=== PATIENT | female | born 1940 | race Caucasian/White ===

== ENCOUNTER 2016-04-30 17:44 | Emergency (ER) | payer MEDICARE, OTHER ==
--- NOTE | ~2016-04-30 | ER ---
PATIENT'S NAME: AGUSTIN HU [facility] AGE: 75 Y [address] ROOM: [place] [address] LOCATION: ED ADMIT DATE: 04/30/2016 ER/Outpatient Report DISCHARGE DATE: 04/30/2016 FAMILY PHYSICIAN: Ewelina Goldstein MD ATTENDING PHYSICIAN: Mariel Lopez Admission date and time documented on the medical record. I saw the patient at 1805 hours when I came on shift. CHIEF COMPLAINT: Wheezing, short of breath. HISTORY OF PRESENT ILLNESS: The patient is a 75-year-old female, who started to have respiratory illness this past Saturday. Seems to get developed wheezing yesterday and today. Temperature got up to 99 at the highest. No rigors. No sweats or chills. Feels short of breath. Her O2 saturation on room air was 92%. She has had audible expiratory wheeze. Does not seem to be labored with her breathing at this time. No fall or trauma. Denies lightheaded, dizziness, syncope, or near syncope. No headache, eyes, ears, nose, throat, neck, or spine pain. No chest pain. No abdominal pain, nausea, vomiting, or diarrhea. No urinary frequency, urgency, or dysuria. Does have some bruising of her extremities. Dog bit her last night, so she has some skin tears to her lower legs. The patient has a history of COPD. 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 She has hypothyroidism but no diabetes. No history of psych issues or other neuro changes. HOME MEDICATIONS: See attached medication list. ALLERGIES: GADOLINIUM DYE. SOCIAL HISTORY: Nonsmoker, occasion intake of alcohol. 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 PATIENT'S NAME: AGUSTIN HU [facility] AGE: 75 Y [address] ROOM: [place] [id number] LOCATION: [facility] ADMIT DATE: 04/30/2016 ER/Outpatient Report DISCHARGE DATE: 04/30/2016 FAMILY PHYSICIAN: Ewelina Goldstein MD ATTENDING PHYSICIAN: Mariel Lopez OPERATIONS: Appendectomy, cholecystectomy, colonoscopy, esophagogastroduodenoscopy, hysterectomy, open reduction and internal fixation of femur fracture, incisional herniorrhaphy, right knee surgery, lumbar laminectomy, right total shoulder arthroplasty, hemiarthroplasty of the hip. REVIEW OF SYSTEMS: All systems reviewed by me are negative with the exception of those discussed in the history of the present illness. PHYSICAL EXAMINATION: VITAL SIGNS: Temperature 97.6, pulse 85, respirations 26, blood pressure 208/109, O2 saturation on room air is 92%. HEAD: Normocephalic. EYES: Extraocular muscles intact. PERRL. EARS: Clear TMs bilaterally. NOSE: Clear. THROAT: Clear. Mucous membranes moist. Teeth, jaw intact. NECK: No nuchal rigidity. No thyromegaly or cervical adenopathy. No tenderness. SPINE: Negative. LUNGS: Inspiratory efforts in all lung garza. Clear expiratory wheezing diffusely. No rales. Few rhonchi. HEART: Regular. Pulses are palpable. The patient is mildly tachypneic. No chest wall or ribcage pain to palpation. ABDOMEN: Soft, moderately obese. Nontender. No organomegaly or abnormal mass palpable. No distention. No CVA tenderness. EXTREMITIES: She has some skin tears on her lower extremity from a dog. No active bleeding. Minimal edema. No cyanosis. No deformity. NEUROVASCULAR: Intact. LABORATORY DATA AND X-RAYS: Procalcitonin was 0.05. Lactate was 0.7. Arterial blood gases on room air showed a pH of 7.44, pCO2 of 43, pO2 of 58 with an O2 saturation of 91%. D- dimer was 2.44. We did go ahead with a CT scan of the chest with PE protocol, which showed no evidence of pulmonary embolism. There was scarring and COPD changes. She had increased metastatic disease of her liver. CT scan was read by Radiology, see dictated transcribed report. Influenza A was positive. Influenza B was negative. CPK was normal at 95. Fengq-ew-jhor cardiac enzymes were normal. CMS was normal except for slightly elevated sodium 146, elevated chloride of 111, elevated alkaline phosphatase 193, elevated AST of 45, white count was 4600, 67 segs, 13 lymphs, 17 monos, 1 eosinophil, hemoglobin was 14.6, hematocrit 47.0, platelet count was 166,000. Sedimentation rate was 32. PTT was 42, pro-time was 9.6, and INR 0.9. PATIENT'S NAME: AGUSTIN HU [facility] AGE: 75 Y [address] ROOM: [place] [address] LOCATION: ED ADMIT DATE: 04/30/2016 ER/Outpatient Report DISCHARGE DATE: 04/30/2016 FAMILY PHYSICIAN: Ewelina Goldstein MD ATTENDING PHYSICIAN: Mariel Lopez EMERGENCY DEPARTMENT COURSE: DuoNeb nebulizer treatment was given in the emergency department. Decadron 10 mg given IM in the emergency department. IMPRESSION: 1. Influenza A with expiratory wheezing and rhonchi. Low-grade temperature of 99. Some increasing shortness of breath. Some increasing hypoxia. 2. Neuroendocrine tumor with metastatic disease to the liver. 3. Hypertension. 4. Dyslipidemia. 5. Hypothyroidism. 6. Carcinoid tumor. 7. Left adrenal mass. 8. Hypercortisolism. 9. History of chronic obstructive pulmonary disease. 10. Irritable bowel syndrome. 11. Osteoporosis with degenerative osteoarthritis. 12. Remote tobacco abuse, stopped smoking 2 to 3 years ago. 13. Anxiety and depression. 14. Chronic kidney disease. 15. Exogenous obesity. 16. Gastroesophageal reflux. PLAN: The patient was dismissed home. Observation. Activity as tolerated. Increase her albuterol nebulizer to every 4-6 hours. Tamiflu 75 mg b.i.d. for 5 days. Continue present medications and care. Good fluids. Good hydration. Good rest. Diet as tolerated. Follow up with personal physician in 3 to 4 days or sooner if needed. Come to the emergency room if problems arise sooner. Discussion ensued with the patient in regard to my findings and recommendations, she understands. MD TAE REYES/modl /[id number] d: 05/01/160 t: 05/01/16 1812, OUTPATIENT REPORT
[~2016-04-30 17:44] MED LIST: ACIDOPHILUS1 EACH PO; ALDACTONE25 MG PO; ALEVE220 MG PO; ANTIVERT12.5 MG; ASPIRIN EC81 MG PO; BUMEX1 MG PO; CARDIZEM CD)(T180 MG PO; COLACE100 MG PO; COMPAZINE5 MG; DEXILANT60 MG PO; DILTIAZEM 24HR180 MG PO; ESTRADIOL1 EAC2 TOP; ESTRADIOL2 MG; FIBERCON1 TAB PO; IMODIUM2 MG PO; K-TAB ER20 MEQ PO; LASIX20 MG PO; LEXAPRO20 MG PO; LOTENSIN HCT 21 EACH PO; LOTENSIN20 MG PO; LOVENOX40 MG/0.4 SUB-Q; MULTIVITAMINS1 EAC1 PO; NORVASC2.5 MG PO; PEPTO BISMOL LIQ1 ML PO; PERCOCET 5-3251 EACH PO; PRAVACHOL40 MG PO; PRAVASTATIN SOD10 MG; PRILOSEC20 M1 PO; PROVENTIL OR V6.7 GM INH; SYMBICORT 16010.2 GM INH; THERAGRAN-M1 TAB PO; VITAMIN B-122500 MCG PO; VITAMIN D1000 UNIT PO; VITAMIN D34000 UNIT PO; ZADITOR 0.025% O5 ML OPHTH
[2016-04-30 18:41] LABS: BICARBONATE 29.2 mmol/L (18.0-23.0); LACTATE 0.7 mEq/L (0.50-1.60); PCO2 43 mmHg (35-45); PO2 58 mmHg (80-90)
[2016-04-30 18:42] LABS: BASOPHIL % 0.4 %; EOSINOPHIL % 0.7 %; HEMOGLOBIN 14.6 g/dL (10.0-15.0); IMMATURE GRANULOCYTE # 0.1 K/uL (0.0-0.3); LYMPHOCYTE # 0.6 K/uL (0.8-4.0); LYMPHOCYTE % 13.3 %; MCH 29.8 pg (27.0-34.0); MCHC 31.1 gm/dL (32.0-36.5); MCV 95.9 fl (83.0-98.0); MONOCYTE # 0.8 K/uL (0.0-1.0); MPV 10.3 fl (9.4-12.4); NEUTROPHIL # (ANC) 3.1 K/uL (1.8-7.8); NEUTROPHIL % 66.6 %; NRBC % 0 /100WBC (0-0.00); PLATELET COUNT 166 K/uL (150-450); RDW-CV 13.2 % (11.9-14.6); WBC 4.6 K/uL (4.0-11.0)
[2016-04-30 18:57] LABS: INR - (THERAPEUTIC) 0.9 (0.9-1.1); PROTIME 9.6 SECONDS (9.6-11.1); PTT 42 SECONDS (25-32)
[2016-04-30 19:04] LABS: ALBUMIN 2.8 gm/dL (3.5-5.0); ALK PHOS 193 IU/L (33-138); ALT 55 IU/L (12-78); AST 45 IU/L (10-40); BLOOD UREA NITROGEN 17 mg/dL (6-24); CALCIUM 8.8 mg/dL (8.5-10.5); CHLORIDE 111 mMol/L (96-110); CO2 27 mMol/L (22-32); CPK 95 IU/L (21-215); CREATININE 0.6 mg/dL (0.5-1.1); ESTIMATED GFR (MDRD EQUATION) > 60; POTASSIUM 4.3 mMol/L (3.7-5.1); TOTAL BILIRUBIN 0.3 mg/dL (0.0-1.5); TOTAL PROTEIN 6.6 g/dL (6.0-8.4)
[2016-04-30 19:05] LABS: ANION GAP 12.3 (10.0-19.0); SODIUM 146 mMol/L (135-145)
[2016-07-27] MEDS ORDERED: AFINITOR5 MG (13:47)
[2016-07-27] MEDS ORDERED: DEXAMETHASON0.5 MG (13:48)
[2016-07-27] MEDS ORDERED: OCTREOTIDE (13:48)
[2016-07-27] MEDS ORDERED: L-CARNITINE250 MG (15:40)
[2016-07-27] MEDS ORDERED: ASCORBIC ACID500 MG (15:40)
== END 2016-04-30 20:49 | disposition disaster alternative care site (69) ==
LOC: GMED 17:44
PROVIDERS: Family Medicine
DX: J10.1 Influenza due to other identified influenza virus with other respiratory manifestations (principal); C7A.00 Malignant carcinoid tumor of unspecified site; C7B.02 Secondary carcinoid tumors of liver; E03.9 Hypothyroidism, unspecified; J44.9 Chronic obstructive pulmonary disease, unspecified; E78.5 Hyperlipidemia, unspecified; K21.9 Gastro-esophageal reflux disease without esophagitis; I12.9 Hypertensive chronic kidney disease with stage 1 through stage 4 chronic kidney disease, or unspecified chronic kidney disease; N18.9 Chronic kidney disease, unspecified; Z90.49 Acquired absence of other specified parts of digestive tract; Z90.710 Acquired absence of both cervix and uterus; F41.9 Anxiety disorder, unspecified; F32.9 Major depressive disorder, single episode, unspecified
CPT/HCPCS: J1100; J1642; Q9967

== ENCOUNTER → 2016-06-26 | Outpatient (CLI) | payer MEDICARE, OTHER ==
[~2016-06-26] MED LIST changes: +AFINITOR5 MG; +ASCORBIC ACID500 MG; +CARDURA2 MG PO; +CORTEF10 M1 PO; +CORTEF20 MG PO; +DEXAMETHASON0.5 MG; +GLUCOPHAGE500 MG PO; +K-TAB 10MEQ10 MEQ PO; +L-CARNITINE250 MG; +OCTREOTIDE; +OSCAL500 MG PO; +PROBIOTIC250 MG PO; +RECLAST5 MG/100 M IV; +SOLU-MEDRO40 MG/1 ML IM; +[UNRECOGNIZED DRUG - OTHER]
== END | disposition disaster alternative care site (69) ==
LOC: GRAD 07:05
DX: C7A.8 Other malignant neuroendocrine tumors (principal); C78.7 Secondary malignant neoplasm of liver and intrahepatic bile duct; C7A.00 Malignant carcinoid tumor of unspecified site; I70.1 Atherosclerosis of renal artery; Q89.8 Other specified congenital malformations; K57.30 Diverticulosis of large intestine without perforation or abscess without bleeding; D71 Functional disorders of polymorphonuclear neutrophils; R91.1 Solitary pulmonary nodule; Z92.21 Personal history of antineoplastic chemotherapy

== ENCOUNTER 2016-07-21 11:41 | Emergency (ER) | payer MEDICARE, OTHER ==
--- NOTE | ~2016-07-21 | ER ---
PATIENT'S NAME: AGUSTIN HU [facility] AGE: 76 Y [address] ROOM: [place] [address] LOCATION: [facility] ADMIT DATE: 07/21/2016 ER/Outpatient Report DISCHARGE DATE: 07/21/2016 FAMILY PHYSICIAN: Physician, Unknown ATTENDING PHYSICIAN: Natalio Chan CHIEF COMPLAINT: Fall with chest wall pain. HISTORY OF PRESENT ILLNESS: Earlier today, the patient fell in her home because she was "top heavy" and lost her balance. She denies any unusual sensations at that time. She denies loss of consciousness. She did have multiple areas of contusion and skin tear to the head, hands, and right knee. These wounds have been addressed previously by daughter, who is reported to be a nurse. The patient is relatively unhealthy with what appears to be metastatic cancer to her liver with unknown primary. No other acute findings. She denies any particular pain, but states it is little uncomfortable to breathe. PAST MEDICAL HISTORY: Documented on the record and reviewed by me. SOCIAL HISTORY: Documented on the record and reviewed by me. MEDICATIONS: Documented on the record and reviewed by me. ALLERGIES: DOCUMENTED ON THE RECORD AND REVIEWED BY ME. REVIEW OF SYSTEMS: All systems were reviewed and negative except as noted in the HPI. PHYSICAL EXAMINATION: VITAL SIGNS: Blood pressure 195/103, pulse 73, respiratory rate 20, temperature 98.2, and SpO2 is 93% on room air. DISCHARGE VITAL SIGNS: Blood pressure 161/92, pulse 70, respiratory rate 16, and pain is 2/10 with SpO2 of 94% on room air. GENERAL: An age-appropriate female, recumbent on the exam table, appearing worse for wear, but in no outward signs of distress, but mild pain with deep inspiration. NEUROLOGIC: The patient is awake and alert. Her GCS appears to be 15. No PATIENT'S NAME: AGUSTIN HU [facility] AGE: 76 Y [address] ROOM: [place], [place] [address] LOCATION: [facility] ADMIT DATE: 07/21/2016 ER/Outpatient Report DISCHARGE DATE: 07/21/2016 FAMILY PHYSICIAN: Physician, Unknown ATTENDING PHYSICIAN: Natalio Chan focal deficits. No asymmetry appreciated on exam. The patient is diffusely weak however, no asymmetry. HEENT: The patient is normocephalic. There are multiple areas of contusions and skin tears and bruising to the forehead and right cheek area. No crepitus. No deformities. Eyes: PERRL. Extraocular movements are intact. NECK: Supple. Trachea is midline. Oropharynx is clear. CHEST: Chest wall is nontender to palpation except for below the breasts at the costochondral margins. HEART: Regular rate and rhythm with no appreciable murmur. LUNGS: Grossly clear to auscultation bilateral. No rhonchi, wheezes, or rales. ABDOMEN: Soft, nontender, and nondistended but obese. BACK: Normal to inspection and palpation. No new abnormalities. EXTREMITIES: Notable for no deformities or appreciable edema. The left knee has a large skin tear with significant skin loss, but is bandaged. SKIN: Intact except for multiple areas of skin tears on the forehead, right cheek, bilateral hands, and right knee. LABORATORY DATA AND X-RAYS: CT of the brain is unremarkable. CT of the chest is without appreciable acute abnormality such as rib fractures. CBC without appreciable abnormality. INR is appropriate. CMS with multiple mild abnormalities including sodium of 146, chloride of 114, glucose of 126, creatinine is 0.5, GFR is greater than 60, and alkaline phosphatase is elevated at 163. IMPRESSION: Falls with multiple contusions and difficulty breathing. EMERGENCY DEPARTMENT COURSE: The patient was seen and evaluated. She was given some fentanyl for pain. Labs were obtained as was the imaging. I recommended EKG, which the patient declined. After the patient was re-evaluated, she was adamant about going home. I had her try to partake with incentive spirometry. She was able to consistently get to 1 L per RT, but could not meet her goal. This is likely due to pain. I explained my concern to the patient that with her inability to fully deep breathe, she would be at increased risk of pneumonia and the pain medication that she may need would likely put her at increased risk of falling. She remained adamant that she would not come in to the hospital. In order to try to prevent her from worsening, I am recommending she take her usual home medications and try to get her incentive spirometer 3 times in the ER. In the event that she is unable to control her pain adequately, I did give her a small prescription for some hydrocodone along with some Zofran. I explained that this would put her at risk of falling and making her worse PATIENT'S NAME: AGUSTIN HU [facility] AGE: 76 Y [address] ROOM: [place], [place] [address] LOCATION: [facility] ADMIT DATE: 07/21/2016 ER/Outpatient Report DISCHARGE DATE: 07/21/2016 FAMILY PHYSICIAN: Physician, Unknown ATTENDING PHYSICIAN: Natalio Chan based on her age and overall health status and the fact that it is a narcotic. She stated that she understood the risks and I believe she comprehends them. She is to use her incentive spirometer and follow up with her primary care physician earlier this week. I believe that she is at significant risk of pneumonia and I am recommending close followup. She is to return immediately if worse. MD KUMAR BAR/afsaneh /[id number] d: 07/22/16 1144 t: 07/24/16 1123, OUTPATIENT REPORT
[~2016-07-21 11:41] MED LIST changes: -AFINITOR5 MG; -ASCORBIC ACID500 MG; -CARDURA2 MG PO; -CORTEF10 M1 PO; -CORTEF20 MG PO; -DEXAMETHASON0.5 MG; -GLUCOPHAGE500 MG PO; -K-TAB 10MEQ10 MEQ PO; -L-CARNITINE250 MG; -OCTREOTIDE; -OSCAL500 MG PO; -PROBIOTIC250 MG PO; -RECLAST5 MG/100 M IV; -SOLU-MEDRO40 MG/1 ML IM; -[UNRECOGNIZED DRUG - OTHER]
[2016-07-21 12:43] LABS: HEMOGLOBIN 11.3 g/dL (10.0-15.0); MCH 28.9 pg (27.0-34.0); MCHC 31.3 gm/dL (32.0-36.5); MCV 92.3 fl (83.0-98.0); MPV 10.5 fl (9.4-12.4); PLATELET COUNT 162 K/uL (150-450); RBC 3.91 M/uL (3.50-5.50); RDW-CV 14.6 % (11.9-14.6); WBC 6.9 K/uL (4.0-11.0)
[2016-07-21 12:44] LABS: HEMATOCRIT 36.1 % (33.0-46.0)
[2016-07-21 12:59] LABS: INR - (THERAPEUTIC) 0.99 (0.92-1.07); PROTIME 10.4 SECONDS (9.8-11.4)
[2016-07-21 13:05] LABS: ALBUMIN 2.9 gm/dL (3.5-5.0); ALK PHOS 163 IU/L (33-138); ALT 36 IU/L (12-78); AST 26 IU/L (10-40); BLOOD UREA NITROGEN 24 mg/dL (6-24); CALCIUM 7.7 mg/dL (8.5-10.5); CHLORIDE 114 mMol/L (96-110); CO2 23 mMol/L (22-32); CREATININE 0.5 mg/dL (0.5-1.1); ESTIMATED GFR (MDRD EQUATION) > 60; POTASSIUM 3.7 mMol/L (3.7-5.1); TOTAL PROTEIN 5.4 g/dL (6.0-8.4)
[2016-07-21 13:12] LABS: ANION GAP 12.7 (10.0-19.0); SODIUM 146 mMol/L (135-145); TOTAL BILIRUBIN 0.4 mg/dL (0.0-1.5)
[2016-07-21 13:15] LABS: ABSOLUTE NEUTROPHIL CT (ANC) 6.1 K/uL (1.8-7.8); BANDED NEUTROPHIL # 0.3 K/uL (0.0-0.1); BANDED NEUTROPHILS % 5 %; LYMPHOCYTE # 0.3 K/uL (0.8-4.0); LYMPHOCYTE % 5 %; MONOCYTE # 0.5 K/uL (0.0-1.0); SEGMENTED NEUTROPHIL # 5.7 K/uL (1.8-7.8); SEGMENTED NEUTROPHIL % 83 %
[2016-07-21 13:28] LABS: PTT 25 SECONDS (25-32)
[2016-07-27] MEDS ORDERED: AFINITOR5 MG (13:47)
[2016-07-27] MEDS ORDERED: OCTREOTIDE (13:48)
[2016-07-27] MEDS ORDERED: DEXAMETHASON0.5 MG (13:48)
[2016-07-27] MEDS ORDERED: L-CARNITINE250 MG (15:40)
[2016-07-27] MEDS ORDERED: ASCORBIC ACID500 MG (15:40)
== END 2016-07-21 15:47 ==
LOC: GACC 11:41
PROVIDERS: Emergency Medicine
DX: S01.81XA Laceration without foreign body of other part of head, initial encounter (principal); S01.411A Laceration without foreign body of right cheek and temporomandibular area, initial encounter; S81.011A Laceration without foreign body, right knee, initial encounter; S61.412A Laceration without foreign body of left hand, initial encounter; S61.411A Laceration without foreign body of right hand, initial encounter; T14.8 Other injury of unspecified body region; W19.XXXA Unspecified fall, initial encounter; Y92.009 Unspecified place in unspecified non-institutional (private) residence as the place of occurrence of the external cause
CPT/HCPCS: J3010

== ENCOUNTER → 2016-07-26 | Outpatient (CLI) | payer MEDICARE, OTHER ==
[~2016-07-26] MED LIST changes: +AFINITOR5 MG; +ASCORBIC ACID500 MG; +CARDURA2 MG PO; +CORTEF10 M1 PO; +CORTEF20 MG PO; +DEXAMETHASON0.5 MG; +GLUCOPHAGE500 MG PO; +K-TAB 10MEQ10 MEQ PO; +L-CARNITINE250 MG; +OCTREOTIDE; +OSCAL500 MG PO; +PROBIOTIC250 MG PO; +RECLAST5 MG/100 M IV; +SOLU-MEDRO40 MG/1 ML IM; +[UNRECOGNIZED DRUG - OTHER]
--- NOTE | ~2016-07-26 | CON ---
PATIENT'S NAME: CARINA HU [facility] AGE: 76 Y [address] ROOM: [place] [address] LOCATION: [facility] ADMIT DATE: 07/26/2016 Consultation DISCHARGE DATE: FAMILY PHYSICIAN: Ewelina Goldstein MD ATTENDING PHYSICIAN: Ewelina Goldstein DATE OF CONSULTATION: 07/26/2016 REFERRING PHYSICIAN: Ewelina Goldstein M.D. [id number] encounter time is 10:20 a.m. to 11:20 a.m. Carina is a 76-year-old white female referred to me for diabetic self- management education by Dr. Ewelina Goldstein. Her current 5 feet 1 inch, weight is 163.8 pounds, BMI 30.89, blood pressure is 138/80. Carina was just recently diagnosed with type 2 diabetes on July 24, 2016. She is currently not on any diabetic medications. She has multitude of medical problems which includes an abdominal wall hernia, adrenal adenoma on the left, allergic rhinitis, anxiety, lumbosacral and thoracic back pain, benign essential hypertension, bradycardia, a malignant carcinoid tumor, chronic abdominal ischemia, chronic GERD, chronic kidney disease stage 3, chronic obstructive pulmonary disease, Martín syndrome, degenerative disk disease, diverticulosis, edema, fatigue, chronic hoarseness, Hyperlipidemia, hyperparathyroidism, hyperuricemia, hypothyroidism, irritable bowel syndrome, lumbar radiculopathy with neuropathy, osteoporosis, orthostatic hypotension, protein malnutrition, and vitamin D deficiency. She had a recent fall in the last 2-3 weeks at her home on the carpet, and she has extensive ecchymosis and laceration on her face, arms, and legs. Her legs are quite edematous. She wears Solaris wraps all the time, however, she is not able to wear them up on her thigh due to the abrasion that she has to her right knee which is a size of softball. She is currently seeing the Wound Care nurses and treating her open wounds. She sees her filler shaker which is Dr. Rodriguez in [place], who manages her hypothyroidism, her hyperparathyroidism, and Cushings disease. Dr. Rodriguez would like her to go to [facility] in [place], [place] to have a lung biopsy because she thinks that her neuroendocrine tumor started possibly in the lung. The biopsy would need to be taken from the base of her left lung which is indeed difficult and this is why Dr. Rodriguez wants to send her to [facility]. One of the things that Carina complains of is that everything tastes like metal, so no food really taste good. She does note that she had a recent trip to [place], [place], and one of the scrap separator squeezed fresh lemon juice over her food and that seemed to help things the most. She also thinks she has issues with her memory as she has lots of thoughts going through her mind and just has trouble concentrating. She is quite a good historian in our talk today. She is newly diagnosed with diabetes, she has never had any education before. Her most recent lab was obtained on July 24, 2016, and her A1c was 7.2% with an average glucose of 160. Her fasting glucose was 170, her total cholesterol PATIENT'S NAME: CARINA HU [facility] AGE: 76 Y [address] ROOM: [place] [address] LOCATION: [facility] ADMIT DATE: 07/26/2016 Consultation DISCHARGE DATE: FAMILY PHYSICIAN: Ewelina Goldstein MD ATTENDING PHYSICIAN: Ewelina Goldstein 195, HDL 119, LDL 58, triglycerides 92. Potassium is 4.5, BUN 18.0, creatinine 0.72, and an EGFR of 83.3. Urine microalbumin was not done. I was urged that we are not quite so strict with the A1c target goals given her age of 76 and all of her multitude of medical problems and that her A1c of 7.2%, I could live with. We just need to figure out some ways to get more protein in her diet and see if we can get her albumin increased. She has not been checking her blood sugars and does not currently own a glucometer. I gave her a new Contour Next glucometer and explained and demonstrated how to check blood sugars. She was able to do a return demonstration without difficulty. The time was set correctly and it was explained to her in great detail. She was instructed to check her blood sugars 1 time a day in a fasting state and to bring her glucometer back with her when she sees Dr. Goldstein for followup. We did discuss hypoglycemia and hyperglycemia and the signs and symptoms of such. She thinks that she had 1 hypoglycemic episode, but this has been probably over a year ago when she was actually at Dr. Goldstein's office. She got very sweaty and shaky and did not feel good and Dr. Goldstein treated her appropriately using the rule of 15. We did discuss the rule of 15 and the appropriate treatment of hypoglycemia. I urged her to always check her sugar first to make sure we are treating the correct thing. Sometimes, the symptoms of hypoglycemia and hyperglycemia can be the same, so it is always good to check the blood sugar first. I also urged her to also wipe the first drop of blood off her finger after using the lancets, and explained those reasons why. As far asexercise is concerned, she is very limited due to fatigue and her increased risk of falling. She is very diligent about going to the dentist twice a year and she just recently went within the last 2 weeks. She had an eye exam by Dr. Morgan last week as she had a recent cataract removal. A foot exam was not performed today as she has Solaris wraps on and it is too difficult to remove them. She is going to go and see the wound nurse tomorrow and they will assess her feet at that time. She does state she does have some issues with peripheral neuropathy, but she does not think that that had anything to do as far as the cause of her recent fall. She is retired. She lives in her own home with her daughter, Nathan. Her daughter and her both cook meals, although the majority of them are probably cooked by Nathan, her daughter. She does not consume any alcohol. She has not smoked for about 2-3 years, although she continues to use vaping. She said her oncologist, Dr. Guzman, told her that if that helps her, that is the least of her worries and that she can continue to do so. She has been very active person all of her life and it is very difficult for her to sit around and watch other people do things because she has always been the goer and doer. She thinks the vaping does help her keep busy and have something to do with her hands, so that she is not eating all the time, but yet feels not so anxious. She rarely goes out to eat, because it is difficult for her to get in and out of the car. Her weekday and weekends schedules are pretty much the same. She denies any food-related issues or allergies. Her appetite is good, it is just everything tastes like metal and so it is hard to find something that tastes good to her. She was having some PATIENT'S NAME: CARINA HU [facility] AGE: 76 Y [address] ROOM: [place] [address] LOCATION: [facility] ADMIT DATE: 07/26/2016 Consultation DISCHARGE DATE: FAMILY PHYSICIAN: Ewelina Goldstein MD ATTENDING PHYSICIAN: Ewelina Goldstein problems with constipation, but that seems to be under good control with use of MiraLAX on a daily basis. She does not really take any vitamins or minerals and surprisingly she really does not complain about much. She figures that the diabetes is just one more thing to add to her multitude of medical problems. She seems to be very comfortable as far as economic situation goes and her insurance has been reimbursing everything very well. Carina's normal day starts out between 7:30 and 9, and she eats breakfast and seems to like grits or oatmeal and occasionally will have some Honey Bunches of Oats which she notes is not the best choice for her because it does contain a lot of carbohydrates. She does not eat a mid morning snack. She eats lunch at noon and will have an egg sandwich on rice bread. Most of the bread that she can buy in a store seems to have to be too sweet of a taste for and she is not able to tolerate it. Then for dinner, she will eat her evening meal between 5 and 7 p.m. and she will have a meat and sometimes mashed potatoes and green beans or some sort of vegetable. She does not eat a bedtime snack. Her beverages of choice are water, coffee, or 2% milk. 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 She also notes that she likes watermelon, but does not eat it often and if she does buy one, it is a small one and she would eat it pretty much at 1 or 2 sittings and then does not get any for a long time. She does occasionally like to have salads, that she sometimes will have sliced chicken on and uses vinegar and oil dressing or regular ranch dressing. She also drinks some smoothies that she uses frozen and sugar free, fruit, yogurt, and protein powder. She notes that when she was in [place], the automotive instructor put lemon on everything, squeezed a fresh lemon, and that made everything taste better, so she continues to do that. We did discuss portion sizes, although her portion sizes seemed to be okay. I did not really talk to her about the amount of carbohydrates that she should be consuming because we concentrated mainly on trying to get protein in her diet to help her protein malnutrition. We discussed using something called Core Power, which she can get in 18, 28, or 42 g of protein in a single bottle to help increase her protein intake. Also that she could try some Canadian Yogurt, as the Canadian Yogurt has a lot more protein in it than it does carbohydrate, in fact I suggested that she use that as a bedtime snack. We talked about the pathophysiology of type 2 diabetes and how it changes and the idea that there is something called magi phenomenon and a bedtime snack may help her with that, especially if we can get her something with some protein because it takes longer to digest, she seemed to concur with that. She actually had many questions and is actually doing well. I told her that we could continue to monitor things and that she should be checking her sugar in a fasting state everyday. We will continue to monitor her and follow up with her when she sees Dr. Goldstein for a followup visit. Her current medication list is as follows: 1. Tramadol 50 mg one tablet t.i.d. p.r.n. PATIENT'S NAME: CARINA HU [facility] AGE: 76 Y [address] ROOM: [place] [id number] LOCATION: [facility] ADMIT DATE: 07/26/2016 Consultation DISCHARGE DATE: FAMILY PHYSICIAN: Ewelina Goldstein MD ATTENDING PHYSICIAN: Ewelina Goldstein 2. Lidoderm 5% external patch on for 12 hours and remove for 12 hours. 3. Spironolactone 12.5 mg daily. 4. Symbicort 160/4.5 mcg 2 puffs twice daily. 5. Albuterol inhalation nebulizer solution 0.083%, use every 4-6 hours as needed per nebulizer for her wheezing. 6. Klor-Con 10 mEq 4 tablets daily. 7. Cortisol Manger oral tablets 2 tablets at bedtime. 8. L-Carnitine powder to use daily as directed. 9. Milk thistle 500 mg 1 daily. 10. Multivitamin 1 daily. 11. Vitamin C 1000 mg daily. 12. Pravastatin 40 mg at bedtime. 13. Doxazosin 2 mg half a tablet daily. 14. Afinitor 5 mg tablet once daily. 15. Prochlorperazine 10 mg every 6 hours as needed for nausea, which she denies having much in the way of nausea. 16. Sandostatin 1000 mcg injection per her oncologist. 17. Vitamin D3 1000 units daily. 18. Aleve 220 mg 1-3 tablets daily as needed for pain. I look forward to following up with Carina in her return visits to Dr. Goldstein, which is how she will follow up with me. She was given my card with phone number and e-mail address to further contact me with any questions that she has. Thank you for this interesting consultation. ALEXA CHING/afsaneh /[id number] d: 07/26/16 2244 t: 07/27/16 1225, CONSULTATION REPORT
== END | disposition disaster alternative care site (69) ==
LOC: GDIC 09:15
DX: E11.8 Type 2 diabetes mellitus with unspecified complications (principal); Z79.899 Other long term (current) drug therapy
CPT/HCPCS: G0108

== ENCOUNTER 2016-10-12 13:10 | Inpatient (IN) | payer MEDICARE, OTHER ==
[~2016-10-12] VITALS: Ht 149.9 cm; Wt 64.5 kg
--- NOTE | ~2016-10-12 | CON ---
PATIENT'S NAME: [facility] AGE: 76 Y [address] ROOM: [address] [place], [place] [address] LOCATION: GPCU ADMIT DATE: 10/12/2016 Consultation DISCHARGE DATE: FAMILY PHYSICIAN: Ewelina Goldstein MD ATTENDING PHYSICIAN: RAUL LOZANO DATE OF CONSULTATION: 10/15/2016 REFERRING PHYSICIAN: Cris Norris MD This is a palliative care referral for goals of care. HISTORY OF PRESENT ILLNESS: This 76-year-old frail female was admitted on 10/12/2016 with acute hypoxic respiratory failure. 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 She recently had an adrenalectomy done at the [facility], had returned home for a few days and had increasing shortness of breath and worsening productive cough of yellow-green sputum. The patient was feeling very fatigued and short of breath with contemplating whether she just wanted to go comfort cares or continue with treatments. She was hoping that the adrenalectomy would give her some relief in her fatigue and shortness of breath, but does not feel like she is improved much with it. Denies any pain. Does complain of nausea off and on. No vomiting. She states that everything tastes metallic after being on her chemotherapy medicine. She feels hungry, but does not feel like eating because it does not taste the same. Fatigues very easily with any activity. No diarrhea or constipation. Complains of very tender skin all over her body. 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 PAST SURGICAL HISTORY: Appendectomy, cholecystectomy, colonoscopy, EGD, hysterectomy, open reduction and internal fixation of femur fracture, incisional hernia, right knee surgery, lumbar laminectomy, right total shoulder arthroscopy, and hemiarthroplasty of the hip. SOCIAL HISTORY: No alcohol or tobacco or illicit drug use. Lives with her daughter. PATIENT'S NAME: [facility] AGE: 76 Y [address] ROOM: [address] [place] [address] [facility] ADMIT DATE: 10/12/2016 Consultation DISCHARGE DATE: FAMILY PHYSICIAN: Ewelina Goldstein MD ATTENDING PHYSICIAN: RAUL LOZANO ALLERGIES: GADOLINIUM DYE. CURRENT MEDICATIONS: 1. Solu-Medrol 40 mg daily. 2. Dulera 20 mcg/5 mcg inhaler 2 puffs b.i.d. 3. Ipratropium and albuterol inhaler every 4 hours. 4. Aldactone 12.5 mg at bedtime. 5. Cardura 2 mg at bedtime. 6. Florastor 250 mg daily. 7. Lasix 20 mg b.i.d. 8. Pravachol 40 mg at bedtime. 9. Heparin 5000 units t.i.d. 10. Sliding scale p.r.n. 11. Proventil inhalers b.i.d. p.r.n. 12. Zofran 4 mg IV every 8 hours p.r.n. for nausea. FAMILY HISTORY: Mother had DE and diverticulosis. Father had leukemia. Sister has cancer of the esophagus, still living. REVIEW OF SYSTEMS: A complete review of systems was done and is negative except as mentioned in the HPI. PHYSICAL EXAMINATION: GENERAL: This is a frail, 76-year-old female. Alert and oriented, tires easily, in no acute distress. VITAL SIGNS: Temperature 98.1, pulse 75, respirations 19, blood pressure 150/67, and O2 saturation 90% on 2 L of oxygen. SKIN: Warm and dry. Multiple ecchymotic areas noted over extremities and chest. Skin is very thin and fragile due to steroid use. HEENT: Normocephalic and atraumatic. Sclerae are nonicteric. Conjunctivae are pale and pink. Mouth is pink and moist without exudate. Tongue is slightly coated. No lesions. LYMPHS: No cervical adenopathy or thyromegaly. RESPIRATORY: Clear to auscultation. Breath sounds even and regular. CARDIAC: S1 and S2 without murmur or bruits. Regular rate and rhythm. ABDOMEN: Soft. Nontender. Positive bowel tones. No hepatosplenomegaly. NEURO: Grossly intact. MUSCULOSKELETAL: Appropriate range of motion. Decreased muscle mass. EXTREMITIES: No cyanosis or deformities. PALLIATIVE PERFORMANCE SCALE: 50% mainly sitting or lying and will not do any activity. Considerable PATIENT'S NAME: [facility] AGE: 76 Y [address] ROOM: [place] [address] LOCATION: GPCU ADMIT DATE: 10/12/2016 Consultation DISCHARGE DATE: FAMILY PHYSICIAN: Ewelina Goldstein MD ATTENDING PHYSICIAN: RAUL LOZANO assistance needed. Intake is reduced and conscious level is slow. LABORATORY DATA: Sodium 146, potassium 3.3, BUN 12, creatinine 0.6, blood sugars 115, alkaline phosphatase is elevated at 254, and albumin is decreased at 2.3. White count is 5.8, hemoglobin 9.8, hematocrit 32.3, and 205,000 platelets. IMPRESSION: Weakness, fatigue, early satiety, and pain. PLAN: Discussion of chronic condition. Met with the patient and her granddaughter, Garo. Discussed the patient's current chronic conditions and recent adrenalectomy and overall declining condition since going to [place] and not improving. The patient has a fairly good understanding of her chronic condition. Discussed recent falls and increased shortness of breath and weakness and fatigue. The patient had Home Health at home, but continued to decline. Discussed options. The patient had been very depressed yesterday and was wanting to know more about just comfort cares and hospice. Discussed hospice versus skilled care at the custodial to try to get stronger if able, discussed appetite, and fci facility options. The patient does like [facility] or [facility] would be her top choices. Is thinking that she wants to think about skilled care and rehab versus hospice. She would like to get her nausea more controlled to see if she could possibly eat better. Pain is controlled at the current time. Was having some back pain and kyphoplasty did help some. CODE STATUS AND ADVANCE DIRECTIVE: A copy of advance directive is on the chart. The patient's code status is a DO NOT RESUSCITATE/DO NOT INTUBATE. The patient agrees with code status. OVERALL GOALS: 1. Get nausea better so the patient is able to eat. May consider scheduling Zofran for 24 to 48 hours to see if helps with nausea, may be related to her chemotherapy drug as well. 2. Think about options of skilled versus comfort. 3. To talk with the Hospice Team. I will contact [facility] and have them just come up to give information to the patient tomorrow or the next day. 4. She is to continue treatments for now. Answered questions and concern. Total time was 60 minutes for counseling and education on comfort cares, hospice, and chronic disease. Thank you for allowing me to assist this patient and family. PATIENT'S NAME: [facility] AGE: 76 Y [address] ROOM: [place] [address] [facility] ADMIT DATE: 10/12/2016 Consultation DISCHARGE DATE: FAMILY PHYSICIAN: Ewelina Goldstein MD ATTENDING PHYSICIAN: RAUL LOZANO GALO DIALLO NP FOR MD KAHLIL LEE/afsaneh /[id number] d: 10/16/[id number] t: 10/23/16 1336, CONSULTATION REPORT
--- NOTE | ~2016-10-12 | CON ---
PATIENT'S NAME: CARINA OTERO [facility] AGE: 76 Y [address] ROOM: [id number] [place] [address] LOCATION: GPCU ADMIT DATE: 10/12/2016 Consultation DISCHARGE DATE: FAMILY PHYSICIAN: Ewelina Goldstein MD ATTENDING PHYSICIAN: RAUL MONTE REFERRING PHYSICIAN: Karlos Tamayo MD Consult to Dr. Monte. REASON FOR CONSULTATION: Carina Otero is a 76-year-old woman, hospitalized for evaluation and treatment of acute respiratory failure in association with acute thoracic compression fractures. The patient is under therapy for an intermediate grade neuroendocrine tumor of undetermined primary site. HISTORY OF PRESENT ILLNESS: The history of present illness is obtained from Mrs. Otero, who is a fair historian; from review of the [facility] record; and from review of the [facility] notes. Mrs. Otero recently fell and broke her back. This was noted when she was at the [facility]. She was discharged from the [facility] on 10/11/2016, and was driven home by her family. The family arrived in [place] after returning from the [facility] on 10/12/2016. The patient had developed a cough productive of green to yellow sputum and dyspnea. She was unable to stand without falling. She was too sick to treat at home. The family took her to the [facility] Emergency Room. In the emergency room, the white count was 5200 with 67 segs, 18 bands. hemoglobin was 10.3 with an MCV of 93, and the platelets were 225,000. The INR was 1 and the PTT was not assayed. The CMS revealed the alkaline phosphatase was elevated at 254 international units/L and albumin was low at 2.8 g/dL, it was otherwise unremarkable. The patient's lactate was within normal limits at 1.6 mEq/L. The CK and Efrain were unremarkable with the proBNP was markedly elevated at 1495 pg/mL. The chest x-ray revealed a left-sided Port-A-Cath and loss of height in the vertebral bodies T6, T7, and T11 on 05/15/2016. The patient underwent a CT scan of the thoracic spine, which revealed a nodule in the left mid lung. Aortic ASVD was stable. Hepatic metastatic disease was again seen diffusely. It was difficult to compare due to lack of IV contrast. The lumbar spine revealed moderate osteoarthritis in the upper lumbar area and advanced osteoarthritic collapse at L1-2 and L5-S1 with fairly severe sclerosis of the endplates adjoining L1-2. The patient has been hospitalized and is on the Hospitalist Service. PATIENT'S NAME: CARINA OTERO [facility] AGE: 76 Y [address] ROOM: [address] [address] LOCATION: GPCU ADMIT DATE: 10/12/2016 Consultation DISCHARGE DATE: FAMILY PHYSICIAN: Ewelina Goldstein MD ATTENDING PHYSICIAN: RAUL MONTE has been consulted, and he believes the patient can be seen in rehabilitation as an outpatient, but if she was unable to do so, he would be happy to take her for inpatient rehabilitation for 7 to 10 days. Mrs. 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 On 06/06/2015, a liver biopsy was performed and diagnostic. It should be noted the pathologist did experience difficulty arriving at a diagnosis, but ultimately performed many special stains. The synaptophysin and chromogranin stains were strongly positive. Therefore, because the patient had a history of tobacco use and was quite ill when she presented, the possibility of a neuroendocrine tumor of the lung was entertained. On 06/29/2015, carboplatin plus etoposide was initiated, and on 07/20/2015 the second cycle was initiated. The patient did not respond to the therapy, so it was presumed she had an indolent neuroendocrine tumor. Indeed the pathologist thought it had been a low to intermediate grade tumor when first examined. On 08/16/2015, Lanreotide was initiated, and on 01/04/2016, the 6th cycle was initiated. The patient did not respond to therapy and embolization of the liver mass, if practical, was recommended. The patient sought a second opinion at the [facility] on 02/27/16. The consultants at the [facility] also recommended bland embolization via radial approach to the liver. They recommended change of therapy from Lanreotide to octreotide. The bland embolization could not be done for technical reasons. 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 The patient saw Deepthi Rodriguez MD in endocrinology consultation in [place], [place]. Dr. Rodriguez speculated the primary might be a bronchial carcinoid, but an octreotide scan was not compatible with that suspicion. 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 She made the point the patient had osteoporosis. 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 She recommended consideration of everolimus and apparently this was initiated or continued. She also recommended consultation with a colleague at [facility] in [place], [place]. Subsequently, Mrs. Otero was seen at the [facility], and on or about 09/11/2016 bilateral adrenalectomy was performed and she was placed on hydrocortisone. Octreotide and everolimus were continued. From the information available in the chart, it appears the everolimus was started on 04/17/2016. ACTIVE PROBLEMS (CHRONIC AND DIAGNOSED): 1. Actinic keratoses. 2. Objective decreased auditory acuity, requiring hearing aids. 3. COLD. PATIENT'S NAME: CARINA OTERO [facility] AGE: 76 Y [address] ROOM: [place] [address] [facility] ADMIT DATE: 10/12/2016 Consultation DISCHARGE DATE: FAMILY PHYSICIAN: Ewelina Goldstein MD ATTENDING PHYSICIAN: RAUL MONTE 4. Essential arterial hypertension. 5. Colonic diverticulum in the ascending, descending, and sigmoid colon. 6. Depression developing after she was in 2000. 7. GERD, treated with proton pump inhibitors. 8. Class I obesity. 9. Hypercholesterolemia. 10. Osteoporosis. 11. Hypovitaminosis D. 12. Osteoarthritis in the hands and knees. 13. Adenomatous polyposis of the colon noted in 2016. 14. Allergic rhinitis. 15. Irritable bowel syndrome. 16. Lumbar spinal stenosis. 17. Atherosclerotic vascular disease. 18. Well-intermediate differentiated neuroendocrine carcinoma of unknown primary site, metastatic to the liver. ACUTE MEDICAL ILLNESSES (RESOLVED), PAST SURGERIES, INJURIES: 1. In 1956 - 1960: G3, P3, AB 0. 2. In 1984, DEBBIE and BSO with incidental appendectomy for pelvic cyst. 3. In 1987, bilateral bunionectomies. 4. In 1989, varicella zoster virus in the second division of the right 5th cranial nerve, complicated with postherpetic neuralgia. 5. In 1999, right hip fracture, treated with a pin, which was removed later in the year. 6. In 2009, right hand surgery. 7. In 2010, partial colectomy for complications of diverticulitis. 8. Right total shoulder replacement. 9. In 2013, incisional hernia repair. 10. In 2014, left L4-5 mini diskectomy and left 3-4 bilateral laminectomy. 11. In 2015, liver biopsy. 12. In 2015, upper GI endoscopy and colonoscopy. 13. In 2017 (09/11), bilateral adrenalectomy. MEDICATIONS UPON ADMISSION: 1. Albuterol. 2. Budesonide and formoterol. 3. Calcium carbonate. 4. Doxazosin. 5. Everolimus 5 mg p.o. daily. 6. Hydrocortisone 20 mg p.o. daily. 7. Hydrocortisone 30 mg p.o. daily. 8. Metformin 500 mg p.o. q.a.m. 9. Methylprednisolone 40 mg in the a.m. 10. Octreotide. PATIENT'S NAME: CARINA OTERO [facility] AGE: 76 Y [address] ROOM: [place] [address] [facility] AD[facility] DATE: 10/12/2016 Consultation DISCHARGE DATE: FAMILY PHYSICIAN: Ewelina Goldstein MD ATTENDING PHYSICIAN: RAUL MONTE 11. KCl 10 mEq daily. 12. Pravastatin 40 mg p.o. q.h.s. 13. Prochlorperazine. 14. Saccharomyces boulardii. 15. Spironolactone. 16. Zoledronic acid. ADVERSE REACTIONS TO MEDICATIONS, TRANSFUSIONS, ALLERGIES: 1. Gadolinium "stopped breathing," shortness of breath, swelling, and mild pruritus. 2. The patient has no history of transfusions. HABITS: Tobacco, one pack per day of cigarettes for 50 years, abstained since 2013. Alcohol, 1 alcoholic beverage a day over the years. Caffeine, a pot of coffee a day over the years. IMMUNIZATIONS: Positive influenza, positive pneumococcal vaccine, positive varicella zoster virus vaccine. SOCIAL HISTORY: The patient was born and raised in [facility]. She was a former Ed. She has a son and 2 daughters live in the area. She has been since 2000. She attends [employer]. FAMILY HISTORY: The patient's sister developed esophageal cancer at 75. The patient father developed CLL and lived for 18 years with the disease and of complications from it. A maternal aunt from a Pancoast tumor in the right lung in the 70s, and a maternal cousin of tobacco related lung cancer in his 70s. PHYSICAL EXAMINATION: VITAL SIGNS: Pulse 80, blood pressure 155/65, respiratory rate 24, temperature 98.3, height 59 inches, weight 63.5 kg (140 pounds), BMI 28.2 kg/m2. GENERAL: A well-developed, overweight, 76-year-old female, in no acute distress. HEENT: Unremarkable. LYMPH NODES: None palpable. NECK: Without JVD or carotid bruits. CHEST: Decreased breath sounds bilaterally. CV: Regular rhythm. No murmurs, bruits, or adventitious sounds. BREASTS: Not examined. PATIENT'S NAME: CARINA OTERO [facility] AGE: 76 Y [address] ROOM: [place] [address] [facility] ADMIT DATE: 10/12/2016 Consultation DISCHARGE DATE: FAMILY PHYSICIAN: Ewelina Goldstein MD ATTENDING PHYSICIAN: RAUL MONTE ABDOMEN: Healed vertical scar from the umbilicus to the symphysis pubis. The liver is palpable below the costal margin. GENITALIA AND RECTAL: Not examined. EXTREMITIES: Multiple ecchymoses. In general, the patient does appear cushingoid. NEUROLOGIC: Alert and oriented. The patient moves all 4 extremities. IMPRESSION: 1. Well-differentiated/intermediate neuroendocrine carcinoma of unknown primary site, metastatic to the liver, complicated by Cadet syndrome, leading to the need for bilateral adrenalectomy. However, the patient is not thriving on octreotide and everolimus. One would hesitate to discontinue the octreotide but not the everolimus if they would interfere with her transfer to a setting where she can be cared for. It may be necessary to think about even discontinuing the octreotide if the patient cannot manage at home. 2. The patient seems to be gradually dwindling, although I have not seen her in many months. If she is dwindling, everolimus would be discontinued even if it did not interfere with her transfer to a setting where she can get the care she needs. RECOMMENDATIONS: I would recommend: 1. Diagnostic: Get the [facility] record. 2. Treatment: Continue octreotide and everolimus for now but explore placement. 3. Patient education: We would try to track records down from the [facility] and coordinate with our colleagues. ANGELIKA SOSA MD [facility]/modl /[id number] Deepthi Rdoriguez MD [place], [place] Gato Rocha MD, [place], [place] d: 10/18/16 2357 t: 10/20/16 1117, CONSULTATION REPORT
--- NOTE | ~2016-10-12 | HP ---
PATIENT'S NAME: AGUSTIN HU [facility] AGE: 76 Y [address] ROOM: [place] [address] [facility] ADMIT DATE: 10/12/2016 History & Physical DISCHARGE DATE: FAMILY PHYSICIAN: Ewelina Goldstein MD ATTENDING PHYSICIAN: RAUL LOZANO DATE OF SERVICE: CHIEF COMPLAINT: Acute hypoxic respiratory failure. 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 The patient reportedly had spent full week at [facility] and had just gotten back to town yesterday evening. The patient reports that she has been having increasing shortness of breath over the past several days and also increased yellow-greenish sputum production for the past several days as well with a worsening shortness of breath prompting her to go see her primary care physician who sent her to the emergency room. On evaluation, the patient was hypoxic on room air in the 80s; and during my evaluation right now, she is saturating 91% to 92% on 4 L of oxygen. The patient has symptoms concerning for pneumonia to explain this, but initial x-ray is negative, she does not have leukocytosis or fever, but she is in an immunosuppressed state from the steroids that she is on and may not amount an immune response to suggest of SIRS type picture. In any case, the patient on exam does have crackles in her lungs as well. The patient denies any other associative symptoms including nausea, vomiting, diarrhea, or constipation. Of note, the patient had fallen about 2 days ago sustaining injuries to her knees and have superficial looking wounds from abrasions. She does not appear to have fractures on the site. PAST MEDICAL HISTORY: 1. Cushingoid syndrome. 2. Neuroendocrine tumor with mets to liver. 3. Steroid-induced hyperglycemia. FAMILY HISTORY: The patient has a mother who has a history of coronary artery disease and CABG. SOCIAL HISTORY: The patient does not report any history of smoking, alcohol, or drug use. PATIENT'S NAME: AGUSTIN HU [facility] AGE: 76 Y [address] ROOM: [id number] [place], [place] [address] LOCATION: [facility] ADMIT DATE: 10/12/2016 History & Physical DISCHARGE DATE: FAMILY PHYSICIAN: Ewelina Goldstein MD ATTENDING PHYSICIAN: RAUL LOZANO REVIEW OF SYSTEMS: All systems have been reviewed and were all negative except as described in the HPI. PHYSICAL EXAMINATION: VITAL SIGNS: Afebrile, blood pressure 153/82, heart rate 82, respiratory rate 18, and saturating 91% on 4 L of oxygen. GENERAL: The patient is awake, alert, oriented, lethargic, and ill-appearing. HEENT: The patient has dry mucosal membranes. No scleral icterus or conjunctival pallor is noted. On appearance, she has cushingoid features. SKIN: Has bilateral knee abrasions with erythema surrounding open blisters. Also, has bruise over right periorbital area with some sustained injuries from recent falls. CHEST: Coarse breath sounds with mild crackles at the bases. HEART: S1, S2 regular rate and rhythm. ABDOMEN: Soft, nontender, nondistended. EXTREMITIES: Without significant edema. NEURO: Grossly nonfocal. ASSESSMENT AND PLAN: 1. Acute respiratory failure with hypoxia. Differential includes healthcare- acquired pneumonia versus volume overload. The patient have an increased sputum concerning for pneumonia. Chest x-ray without obvious signs of infiltrative process. In any case, we will treat with broad-spectrum antibiotics with vancomycin and Zosyn noting her immunosuppressive state and monitor clinically. We will also get a CT of her chest without contrast to further evaluate. We will also get a 2D echo to see if volume overload is taking a part and on exam she does have crackles at the bases. We will give her 20 of Lasix x1 and see if that helps. 2. Healthcare-acquired pneumonia. Antibiotics as above. CT chest to be done and followup on results and follow clinical response to treatment. 3. Acute thoracic compression fractures. Acute fracture severe T11, T6-7 as well. Does not have any alarming neurological symptoms, but she does have significant pain. This is not a new finding and was noted even during her stay at [place] and the plan was to attempt vertebroplasty, but since she had abrasions in her knees that were also concerning for an infection that was not advised at that point. At this point, I agree with pursuing conservative care and we will have physical therapy come work with this patient and if she does not do well with this then at that point maybe we can pursue vertebroplasty once all sorts of infection have been ruled out and treated preferably. 4. Steroid-induced hyperglycemia. We will use 5 units of insulin and monitor. The patient is on metformin at home and we will hold this. 5. Cushingoid syndrome, relating to neuroendocrine tumor, and she is status post adrenalectomy recently. She did get a stress-dose steroid of 100 mg PATIENT'S NAME: AGUSTIN HU [facility] AGE: 76 Y [address] ROOM: [place] [address] [facility] ADMIT DATE: 10/12/2016 History & Physical DISCHARGE DATE: FAMILY PHYSICIAN: Ewelina Goldstein MD ATTENDING PHYSICIAN: RAUL LOZANO of intravenous cortisone at the ED. We will continue her home prednisone dosage as it is and we will give some more stress-dose steroids if her vital signs and blood pressure shows signs of adrenal suppression. 6. Deep vein thrombosis. We will use subcutaneous heparin. MD NIRAJ GREER/modl /[id number] D: T: 556 HISTORY & PHYSICAL
--- NOTE | ~2016-10-12 | CON ---
PATIENT'S NAME: AGUSTIN HU [facility] AGE: 76 Y [address] ROOM: [place] [address] LOCATION: [facility] ADMIT DATE: 10/12/2016 Consultation DISCHARGE DATE: FAMILY PHYSICIAN: Ewelina Goldstein MD ATTENDING PHYSICIAN: RAUL MONTE DATE OF CONSULTATION: 10/16/2016 REFERRING PHYSICIAN: Raul Monte MD REASON FOR CONSULTATION: Multiple skin tears. HISTORY OF PRESENT ILLNESS: This is a pleasant 76-year-old female patient who is admitted to [facility] with pneumonia. 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 Two days prior to admission, she fell while she was at [facility]. She notes she was in the bathroom and lost her balance. No loss of consciousness noted. She denies pain, but notes she is "stiff." She reports a poor oral intake and a metallic taste when eating. She complains of shortness of breath on exertion. She denies chest pain. She admits to a hacking cough. She notes dressings were applied to her skin tears last , but have not been changed since. She notes slight discomfort to her buttocks. PAST MEDICAL HISTORY: [place]'s syndrome, neuroendocrine tumor with mets, essential hypertension, COPD, chronic kidney disease, degenerative joint disease, hyperparathyroidism, hypothyroidism, allergic rhinitis, anxiety, back pain, GERD, degenerative disk disease, depression, dysphagia, type 2 diabetes mellitus, hyperlipidemia, hyperuricemia, IBS, osteoporosis, lower leg edema, vitamin D deficiency, and unspecified congestive heart failure. PAST SURGICAL HISTORY: Appendectomy, cholecystectomy, femur repair, hysterectomy, incisional hernia repair, right knee surgery, lumbar laminectomy, total shoulder replacement, hip fracture repair with pinning, and recent adrenal gland surgery at [place]. FAMILY HISTORY: Positive for cardiac disease. SOCIAL HISTORY: The patient lives in [place]. She quit smoking in 2014. She denies alcohol use. ALLERGIES: MRI CONTRAST. CURRENT MEDICATIONS: PATIENT'S NAME: AGUSTIN HU [facility] AGE: 76 Y [address] ROOM: [place] [address] LOCATION: [facility] ADMIT DATE: 10/12/2016 Consultation DISCHARGE DATE: FAMILY PHYSICIAN: Ewelina Goldstein MD ATTENDING PHYSICIAN: RAUL MONTE Please refer to the medication administration record. REVIEW OF SYSTEMS: Pertinent positives addressed in HPI and all others are negative. PHYSICAL EXAMINATION: VITAL SIGNS: Temperature 98.2, pulse 77, respirations 20, blood pressure 136/64, and pulse oximetry 97% on 2 L. Height 4 feet, 11 inches and weight 63.0 kg. GENERAL: The patient is alert and oriented x3. Appears her stated age. Hacking cough noted. Shortness of breath on exertion. HEENT: Anicteric sclerae. Dry oral mucosa. Ecchymosis to right frontal/temporal area. HEART: Regular rate and rhythm per monitor. ABDOMEN: Deferred. EXTREMITIES: Palpable pedal pulses. No edema. Mycotic toenails. Extremities are warm to touch. Blanchable redness to right heel. No open areas. SKIN: Multiple skin tears noted. To the patient's right shoulder, she has a C-shaped skin tear with the majority of the flap approximated down. Wound bed is yellow. Small amount of serous exudate. Area is ecchymotic. Close to the patient's right elbow, she has a large skin tear that measures 2.0 cm width x 6.5 cm length x 0.2 cm depth. Wound bed is a mixture of yellow slough with an ecchymotic skin flap. Periwound intact. Small amount of serous exudate. To the patient's right posterior forearm, her skin tear measures 1.5 cm width x 4.0 cm length x 0.1 cm depth. Wound bed is moist pink. Periwound intact. Small amount of serous exudate. To the patient's left upper arm, her skin tear measures 3.0 cm width x 6.0 cm length x 0.2 cm depth. Wound bed is mostly moist pink with a small amount of yellow slough. Bleeds easily. Periwound is intact, but ecchymotic. To the patient's right knee, she has 3 scattered skin tears. The majority are moist pink. Periwound intact. Draining a small amount of serosanguineous exudate. To the patient's left knee, she has a large skin tear that measures 3.0 cm width x 6.5 cm length x 0.3 cm depth. Wound bed is a mixture of moist pink tissue and yellow slough. Periwound intact, but ecchymotic. Moderate amount of serous exudate. To the patient's sacrum she has blanchable redness. LABORATORY DATA: White blood cell count 7.2, hemoglobin 9.9, hematocrit 32.9, and platelets 213. Sodium 144, potassium 3.5, chloride 111, bicarb 28, BUN 9, creatinine 0.5, glucose 107, and albumin 2.2. ASSESSMENT AND PLAN: Again, this is a pleasant 76-year-old female patient who is admitted to [facility] with pneumonia. Wound Care consult to evaluate skin tears. PATIENT'S NAME: AGUSTIN HU [facility] AGE: 76 Y [address] ROOM: [id number] [place] [address] LOCATION: [facility]U ADMIT DATE: 10/12/2016 Consultation DISCHARGE DATE: FAMILY PHYSICIAN: Ewelina Goldstein MD ATTENDING PHYSICIAN: RAUL MONTE 1. Multiple skin tears as listed above, secondary to a fall. All skin tears appear full-thickness except for patient's right posterior forearm wound, which appears partial-thickness. Discussed different treatment options. We have used foam dressings in the past. The patient was concerned about them sticking and has removed at home before. We will initiate the Vaseline gauze protocol changing the dressings daily and p.r.n. saturation. The patient is okay to shower prior to dressing change if able. Discussed fall prevention. 2. Pressure ulcer prevention. The patient has blanchable redness to sacrum and right heel. She is certainly at high-risk for pressure ulcer development. I would like nursing to turn her bed [id number] q.2 h. and keep on pillows all time. I discussed the importance of protein intake. 3. Acute respiratory failure with hypoxia, on oxygen therapy. 4. Healthcare-acquired pneumonia, on antibiotics. 5. Acute thoracic compression fractures, the patient is working with PT. I would like to thank Dr. Monte for this consult. SEGUN WARNER APRN FOR MD NAHEED ORTEGA/modl /[id number] d: 10/16/16 1008 t: 10/17/16811, CONSULTATION REPORT
--- NOTE | ~2016-10-12 | ECHO ---
Transthoracic Echocardiography Report (TTE) Demographics Patient Name AGUSTIN HU Date of Study 10/13/2016 Patient Number [id number] Visit Number [id number] Date of 1940 Room Number [address] Gender Female Number Age 76 year(s) Referring Angelita Delong Gas Desulfurizer Trena Reyna [facility], Physician RVT Jr LYNCH Physician Interpreting Kasie Varma Ex Chef Physician A MD Supervising Ordering Jr Lynch MD/MLP Physician Nurse Stress Job Placement Officer Conclusions Contractility Score Summary Normal Left Ventricular contractility was noted. Summary The estimated left ventricular ejection fraction is 60-65%. Mild concentric left ventricular hypertrophy. Diastolic assessment reveals Grade I diastolic dysfunction. Trivial mitral regurgitation by color Doppler. Mild mitral annular calcification. There is moderate aortic regurgitation by color Doppler. The aortic valve is mildly sclerotic. There is mild pulmonary hypertension. The pulmonary pressure (RVSP) is 36 mmHg. Mild tricuspid regurgitation by color Doppler. Moderate pulmonic valve regurgitation by color Doppler. Small circumferential pericardial effusion. There is no echocardiographic evidence of cardiac tamponade. The ascending aorta appears dilated. The maximum diameter measures 3.25 cm. Procedure Type of Study TTE procedure:2D Echocardiogram. Procedure Date Date: 10/13/2016 Start: 02:22 PM Study Location: Inpatient Portable Technical Quality: Fair Indications:CHF. Additional Indications:sob Appropriate Use Criteria: 9 Patient Status: Routine Rhythm: Within normal limits HR: 73 bpm BP: 158/78 mmHg M-Mode/2D Measurements LV Diastolic Dimension: 4.85 cm LV Systolic Dimension: 3.55 cm LV Septum Diastolic: 1.12 cm LV Septum Systolic: 3.02 cm LV PW Diastolic: 1.1 cm AO Root Dimension: 2.7 cm Cardiac Output: 7.24 l/min LA Dimension: 2.7 cm Post Pericard Effusion: 0.9 cm LVOT: 2.2 cm IVC Inspiration: 0.77 cm LVOT VTI: 26.1 cm RV Base: 4.11 cm LV Stroke volume: 99.16 ml RV Length: 6.51 cm TAPSE: 2.47 cm TDI-S': 15.5 cm/s Doppler Measurements AV Peak Velocity: 2.41 m/s MV Peak E-Wave: 0.65 m/s AV Peak Gradient: 23.23 mmHg MV Peak A-Wave: 1.01 m/s AV Mean Gradient: 11 mmHg MV E/A Ratio: 0.65 LVOT Peak Velocity: 1.46 m/s MV P1/2t: 100 msec AV P1/2t: 473 msec TR Gradient:33.41 mmHg PV Peak Velocity: 1.54 m/s Estimated RAP:3 mmHg PV Peak Gradient: 9.49 mmHg Estimated RVSP: 36 mmHg Estimated PASP: 36.41 mmHg E' Septal Velocity: 0.06 m/s A' Septal Velocity: 0.08 m/s E' Lateral Velocity: 0.08 m/s A' Lateral Velocity: 0.16 m/s MV E/E' Ratio: 8 Findings Left Ventricle The estimated left ventricular ejection fraction is 60%. Mild concentric left ventricular hypertrophy. Diastolic assessment reveals Grade I diastolic dysfunction. Right Ventricle Normal right ventricle structure and function. Left Atrium Normal left atrial size. Right Atrium The right atrium is mildly dilated. Mitral Valve Trivial mitral regurgitation by color Doppler. Mild mitral annular calcification. Aortic Valve There is moderate aortic regurgitation by color Doppler. The aortic valve is mildly sclerotic. Tricuspid Valve There is mild pulmonary hypertension. The pulmonary pressure (RVSP) is 36 mmHg. Mild tricuspid regurgitation by color Doppler. Pulmonic Valve Moderate pulmonic valve regurgitation by color Doppler. Pericardial Effusion Small circumferential pericardial effusion. There is no echocardiographic evidence of cardiac tamponade. Miscellaneous The ascending aorta appears dilated. The maximum diameter measures 3.25 cm. Pleural Effusion No evidence of pleural effusion. Contractility Score LV regional wall motion:(0-Non visualized 1-Normal 2-Hypokinesis 3-Akinesis 4-Dyskinesis 5-Aneurysm) Signature dtt: Ivelisse Ferro dtd: 10/13/16 1422 Physician Self Edit
--- NOTE | ~2016-10-12 | CON ---
PATIENT'S NAME: AGUSTIN HU [facility] AGE: 76 Y [address] ROOM: [place] [address] LOCATION: GPCU ADMIT DATE: 10/12/2016 Consultation DISCHARGE DATE: FAMILY PHYSICIAN: Ewelina Goldstein MD ATTENDING PHYSICIAN: RAUL LOZANO REFERRING PHYSICIAN: Karlos Lizarraga MD A consult for Dr. Sanchez. HISTORY OF PRESENT ILLNESS: This pleasant 76-year-old lady is referred for rehab evaluation, was admitted on 10/12/2016 with recent cough, expectoration, and shortness of breath, known to be with complicated history of Cushingoid syndrome. She is also known to have metastatic lesion to liver and lung, status post adenectomy at [facility]. Recently, she has been weaker with cough, expectoration, and shortness of breath, and realistically, has been much more weaker than before. She did fall and had abrasions on her knee skin. No fracture reported. She also is now with steroid-induced hyperglycemia. PHYSICAL EXAMINATION: NEUROLOGIC: Alert, oriented. Can comprehend and express without difficulty. Cranial nerves 2 through 12 are within normal limits. She can swallow without difficulty, both solids and fluids. Voice is clear and not wet. VITAL SIGNS: Blood pressure 158/67, temperature 98.2, pulse 80, and respirations 22. She is 4 feet 11 inches tall and weighs 66.1 kg. HEENT: Head is normocephalic. Cranial nerves 2 through 12 are within normal limits. CHEST: Moving symmetrical; however, she is with marked generalized wheezes throughout. She is stating that she is continent of her bowel with occasional incidents, and she is not so continent with her bladder. MEDICATIONS: She is on the following medications: 1. Cortel. 2. Mucinex. 3. NaCl 0.9%. 4. Lasix. 5. Albuterol. 6. Zofran. PATIENT'S NAME: AGUSTIN HU [facility] AGE: 76 Y [address] ROOM: [place] [address] LOCATION: GPCU ADMIT DATE: 10/12/2016 Consultation DISCHARGE DATE: FAMILY PHYSICIAN: Eweilna Goldstein MD ATTENDING PHYSICIAN: RAUL LOZANO 7. Heparin. 8. Aldactone. 9. Pravachol. 10. Cardura. 11. Insulin aspartate, mild. 12. Florastor. 13. Dulcolax. 14. Glucagon. 15. Glucose. 16. Dextrose. 17. Doxycycline. 18. Nystatin. 19. Solu-Medrol. ASSESSMENT AND PLAN: Able to ambulate at the present time 120 feet with oxygen at 2 L. I feel that this lady is doing well. Can go on outpatient basis with home health; however, if she is unable to do so, I will be happy to take her for intensive rehabilitation for about 7 to 10 days. All the above was explained to her daughter who lives with her. They verbalized understanding and agreement. KARLOS LIZARRAGA MD WMS/modl /[id number] d: 10/18/16 1247 t: 10/19/16 0715, CONSULTATION REPORT
--- NOTE | ~2016-10-12 | CON ---
PATIENT'S NAME: AGUSTIN HU [facility] AGE: 76 Y [address] ROOM: [place] [address] LOCATION: GPCU ADMIT DATE: 10/12/2016 Consultation DISCHARGE DATE: FAMILY PHYSICIAN: Ewelina Goldstein MD ATTENDING PHYSICIAN: RAUL MONTE DATE OF CONSULTATION: 10/16/2016 REFERRING PHYSICIAN: Raul Monte MD REASON FOR CONSULTATION: Multiple skin tears. HISTORY OF PRESENT ILLNESS: This is a pleasant 76-year-old female patient who is admitted to [facility] with pneumonia. 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 Two days prior to admission, she fell while she was at [facility]. She notes she was in the bathroom and lost her balance. No loss of consciousness noted. She denies pain, but notes she is "stiff." She reports a poor oral intake and a metallic taste when eating. She complains of shortness of breath on exertion. She denies chest pain. She admits to a hacking cough. She notes dressings were applied to her skin tears last , but have not been changed since. She notes slight discomfort to her buttocks. PAST MEDICAL HISTORY: [place]'s syndrome, neuroendocrine tumor with mets, essential hypertension, COPD, chronic kidney disease, degenerative joint disease, hyperparathyroidism, hypothyroidism, allergic rhinitis, anxiety, back pain, GERD, degenerative disk disease, depression, dysphagia, type 2 diabetes mellitus, hyperlipidemia, hyperuricemia, IBS, osteoporosis, lower leg edema, vitamin D deficiency, and unspecified congestive heart failure. PAST SURGICAL HISTORY: Appendectomy, cholecystectomy, femur repair, hysterectomy, incisional hernia repair, right knee surgery, lumbar laminectomy, total shoulder replacement, hip fracture repair with pinning, and recent adrenal gland surgery at [place]. FAMILY HISTORY: Positive for cardiac disease. SOCIAL HISTORY: The patient lives in [place]. She quit smoking in 2014. She denies alcohol use. ALLERGIES: MRI CONTRAST. CURRENT MEDICATIONS: PATIENT'S NAME: AGUSTIN HU [facility] AGE: 76 Y [address] ROOM: [place] [address] LOCATION: GPCU ADMIT DATE: 10/12/2016 Consultation DISCHARGE DATE: FAMILY PHYSICIAN: Ewelina Goldstein MD ATTENDING PHYSICIAN: RAUL MONTE Please refer to the medication administration record. REVIEW OF SYSTEMS: Pertinent positives addressed in HPI and all others are negative. PHYSICAL EXAMINATION: VITAL SIGNS: Temperature 98.2, pulse 77, respirations 20, blood pressure 136/64, and pulse oximetry 97% on 2 L. Height 4 feet, 11 inches and weight 63.0 kg. GENERAL: The patient is alert and oriented x3. Appears her stated age. Hacking cough noted. Shortness of breath on exertion. HEENT: Anicteric sclerae. Dry oral mucosa. Ecchymosis to right frontal/temporal area. HEART: Regular rate and rhythm per monitor. ABDOMEN: Deferred. EXTREMITIES: Palpable pedal pulses. No edema. Mycotic toenails. Extremities are warm to touch. Blanchable redness to right heel. No open areas. SKIN: Multiple skin tears noted. To the patient's right shoulder, she has a C-shaped skin tear with the majority of the flap approximated down. Wound bed is yellow. Small amount of serous exudate. Area is ecchymotic. Close to the patient's right elbow, she has a large skin tear that measures 2.0 cm width x 6.5 cm length x 0.2 cm depth. Wound bed is a mixture of yellow slough with an ecchymotic skin flap. Periwound intact. Small amount of serous exudate. To the patient's right posterior forearm, her skin tear measures 1.5 cm width x 4.0 cm length x 0.1 cm depth. Wound bed is moist pink. Periwound intact. Small amount of serous exudate. To the patient's left upper arm, her skin tear measures 3.0 cm width x 6.0 cm length x 0.2 cm depth. Wound bed is mostly moist pink with a small amount of yellow slough. Bleeds easily. Periwound is intact, but ecchymotic. To the patient's right knee, she has 3 scattered skin tears. The majority are moist pink. Periwound intact. Draining a small amount of serosanguineous exudate. To the patient's left knee, she has a large skin tear that measures 3.0 cm width x 6.5 cm length x 0.3 cm depth. Wound bed is a mixture of moist pink tissue and yellow slough. Periwound intact, but ecchymotic. Moderate amount of serous exudate. To the patient's sacrum she has blanchable redness. LABORATORY DATA: White blood cell count 7.2, hemoglobin 9.9, hematocrit 32.9, and platelets 213. Sodium 144, potassium 3.5, chloride 111, bicarb 28, BUN 9, creatinine 0.5, glucose 107, and albumin 2.2. ASSESSMENT AND PLAN: Again, this is a pleasant 76-year-old female patient who is admitted to [facility] with pneumonia. Wound Care consult to evaluate skin tears. PATIENT'S NAME: AGUSTIN HU [facility] AGE: 76 Y [address] ROOM: [id number] [place] [address] LOCATION: GPCU ADMIT DATE: 10/12/2016 Consultation DISCHARGE DATE: FAMILY PHYSICIAN: Ewelina Goldstein MD ATTENDING PHYSICIAN: RAUL MONTE 1. Multiple skin tears as listed above, secondary to a fall. All skin tears appear full-thickness except for patient's right posterior forearm wound, which appears partial-thickness. Discussed different treatment options. We have used foam dressings in the past. The patient was concerned about them sticking and has removed at home before. We will initiate the Vaseline gauze protocol changing the dressings daily and p.r.n. saturation. The patient is okay to shower prior to dressing change if able. Discussed fall prevention. 2. Pressure ulcer prevention. The patient has blanchable redness to sacrum and right heel. She is certainly at high-risk for pressure ulcer development. I would like nursing to turn her bed [id number] q.2 h. and keep on pillows all time. I discussed the importance of protein intake. 3. Acute respiratory failure with hypoxia, on oxygen therapy. 4. Healthcare-acquired pneumonia, on antibiotics. 5. Acute thoracic compression fractures, the patient is working with PT. I would like to thank Dr. Monte for this consult. SEGUN WARNER APRN FOR MD NAHEED ORTEGA/modl /[id number] d: 10/16/16 1008 t: 10/24/16 1156, CONSULTATION REPORT
--- NOTE | ~2016-10-12 | ER ---
PATIENT'S NAME: AGUSTIN HU [facility] AGE: 76 Y [address] ROOM: [address] [address] [facility] AD[facility] DATE: 10/12/2016 ER/Outpatient Report DISCHARGE DATE: FAMILY PHYSICIAN: Ewelina Goldstein MD ATTENDING PHYSICIAN: RAUL MONTE Time of Arrival: 1310 hours. Time of Evaluation: 1312 hours. CHIEF COMPLAINT: Shortness of breath and cough. HISTORY OF PRESENT ILLNESS: The patient is a 76-year-old female who presents to the emergency department today with chief complaint of shortness of breath and cough. 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 She also does have history of cushingoid syndrome and had adrenalectomy few months ago. She does have a history of compression fractures to her thoracic spine. She was being seen at [facility] and actually just got back into town yesterday evening. She has had increased shortness of breath. Over the past few days, she reports she has had a productive green cough with greenish to yellow sputum. She reports that her shortness of breath has just progressively worsened. She is accompanied by her daughters who help support her. The patient denies any fevers or chills. No nausea or vomiting. No diarrhea or constipation. The patient did have another fall yesterday. She was seen and evaluated and had a CT scan of her brain which was negative. The patient does have multiple skin tears though and multiple bruising. They do note that there were no fractures noted. PAST MEDICAL HISTORY: COPD, neuroendocrine tumor with metastatic disease to the liver, carcinoid tumor, left adrenal mass, cushingoid syndrome, hypothyroidism, hypertension, dyslipidemia, irritable bowel syndrome, osteoporosis with degenerative osteoarthritis, compression fracture of thoracic spine, pancreatitis, ventral hernia, vitamin D deficiency, hard of hearing, anxiety, depression, chronic kidney disease, diverticulosis, lumbar spinal stenosis, degenerative joint disease, gastroesophageal reflux disease. PAST SURGICAL HISTORY: Appendectomy, cholecystectomy, colonoscopy, EGD, hysterectomy, open reduction and internal fixation of femur fracture, incisional hernia, right knee surgery, lumbar laminectomy, right total shoulder arthroscopy, hemiarthroplasty of the hip. SOCIAL HISTORY: PATIENT'S NAME: KATHY [facility] AGE: 76 Y [address] ROOM: [id number] [place], [place] [address] [facility] AD[facility] DATE: 10/12/2016 ER/Outpatient Report DISCHARGE DATE: FAMILY PHYSICIAN: Ewelina Goldstein MD ATTENDING PHYSICIAN: RAUL MONTE The patient denies any tobacco, alcohol, or illicit drug use. ALLERGIES: GADOLINIUM DYE. MEDICATIONS: Please see list. PRIMARY CARE DOCTOR: Ewelina Goldstein MD and Angelica. REVIEW OF SYSTEMS: All systems are reviewed by myself and are negative with the exception of those discussed in HPI and past medical history. PHYSICAL EXAMINATION: VITAL SIGNS: Weight 66.2 kg. Blood pressure 159/72, pulse 89, respiratory rate 18, temperature 99.9, oxygen saturation 92% on room air. GENERAL: The patient is a 76-year-old female, who appears older than stated age. She is in some mild respiratory distress. HEENT: Normocephalic, atraumatic. Pupils are equal, round, and reactive to light. She does have some cushingoid features and dry mucous membranes. NECK: Supple. No nuchal rigidity. CARDIOVASCULAR: Regular rate and rhythm. No murmurs, rubs, or gallops. LUNGS: With coarse breath sounds and crackles worse at the bases bilaterally. ABDOMEN: Soft, nontender, and nondistended. No rebound, rigidity or guarding. MUSCULOSKELETAL: The patient moves all 4 extremities. SKIN: Warm and dry. There are no rashes or lesions noted. LABORATORY DATA AND X-RAYS: Lactate is normal. Two-view chest x-ray is negative. CBC is normal. Coags are normal. CMP is unremarkable except for sodium 147 and chloride 113. LFT is normal. Cardiac enzymes are normal. ProBNP is 1495. Procalcitonin 0.12. CT scan of C, T and L-spine are all obtained. I have discussed the results with the radiologist. She does have old compression fractures of T6-T7. There is compression fracture of T11, chronicity unknown, acute versus subacute. She does have degenerative changes in her lumbar spine. IMPRESSION: 1. Clinical pneumonia. 2. Acute hypoxic respiratory failure requiring 4 L of oxygen. 3. Acute versus subacute thoracic compression fracture. 4. Cushingoid syndrome and neuroendocrine tumor. PATIENT'S NAME: AGUSTIN HU [facility] AGE: 76 Y [address] ROOM: [address] [address] [facility] AD[facility] DATE: 10/12/2016 ER/Outpatient Report DISCHARGE DATE: FAMILY PHYSICIAN: Ewelina Goldstein MD ATTENDING PHYSICIAN: RAUL MONTE 5. Initial visit. EMERGENCY DEPARTMENT COURSE: The patient was brought back to the examination room. Seen and evaluated by myself. IV was established. Laboratory analysis and imaging are obtained as described above. I did discuss the case with Dr. Dominguez. The patient is given 100 mg of hydrocortisone IV as well as started on Zosyn and vancomycin. Results are obtained. I have discussed results with the patient and with family. Recommended admission to the hospital for further evaluation, treatment, and management. I have discussed the case with Dr. Monte. He does agree to accept the patient for further evaluation, treatment, and management. DISPOSITION: The patient is admitted under the care of Dr. Monte, hospitalist in stable condition. DO RICCARDO KURTZ/afsaneh /[id number] d: 10/13/16 0723 t: 10/13/16 1529, OUTPATIENT REPORT
--- NOTE | ~2016-10-12 | DS ---
PATIENT'S NAME: AGUSTIN HU [facility] AGE: 76 Y [address] ROOM: [address] [place], [place] [address] LOCATION: GPCU ADMIT DATE: 10/12/2016 Discharge Summary DISCHARGE DATE: 10/22/2016 FAMILY PHYSICIAN: Ewelina Goldstein MD ATTENDING PHYSICIAN: Laurel Monte FINAL DIAGNOSES: 1. Acute hypoxic respiratory failure. 2. Acute on chronic diastolic congestive heart failure. 3. Right lower lobe pneumonia with Moraxella catarrhalis. 4. Chronic obstructive pulmonary disease exacerbation. 5. [place]'s, status post adrenalectomy on steroid replacement. 6. Neuroendocrine tumor. 7. Hypokalemia. 8. Anemia of chronic disease. Please see the history and physical dictated by Dr. Monte for details of admission. In short, the patient was seen in the emergency room with a chief complaint of shortness of breath. She few months ago had adrenalectomy at [place] and is on stress doses. She began having a cough productive of green and yellow sputum and she was found to be on acute hypoxic respiratory failure. She was admitted to PCU. LABORATORY DATA: On admission, sodium was 147, got as high as 149, and on discharge 145. Potassium on admission was 3.4, got as low as 2.1, and at discharge it was 4.2. Chloride on admission was 113, discharge 111. CO2 was 28 at discharge. BUN on admission was 15, discharge 31. Creatinine on admission was 0.7, discharge 0.6. On admission, her alkaline phosphatase was 254, AST 30, ALT 26, CK was 45, troponin less than 0.04, ProBNP 1495. Her alkaline phosphatase got down to 164 prior to discharge. Troponin was negative on admission. Her white blood cell count on October 12 was 8, she did have a slight left shift. Most prior to discharge, white blood cell count was 8.1. Hemoglobin on admission was 12.1, did get as low as 9.6, most prior to discharge 10.2. Platelet count on admission was 254, discharge 240. Procalcitonin on admission was 0.12. MICROBIOLOGY DATA: Her sputum culture did grow Moraxella catarrhalis. RADIOLOGY STUDIES: Cervical spine CT done because she had fallen prior to admission, showed advanced degenerative changes. Thoracic spine CT done, showed she had vertebral compression fractures at T6, T7, and T11; question if there is a subacute fracture on T11. Lumbar spine CT showed degenerative disk disease. Spiral cut CT of her chest showed she was overall stable, she had a 14 mL nodule that was stable, her hepatic metastatic disease was unchanged. Chest x-ray on the 8th did show an opacity on the right base. Echocardiogram PATIENT'S NAME: AGUSTIN HU [facility] AGE: 76 Y [address] ROOM: [id number] [place], [place] [address] LOCATION: GPCU ADMIT DATE: 10/12/2016 Discharge Summary DISCHARGE DATE: 10/22/2016 FAMILY PHYSICIAN: Ewelina Goldstein MD ATTENDING PHYSICIAN: Laurel Monte showed her ejection fraction was 60% to 65%. She had grade 1 diastolic dysfunction. HOSPITAL COURSE: The patient was admitted to PCU with a clinical diagnosis of acute hypoxic respiratory failure and pneumonia. She did not meet criteria for sepsis. She was started on IV Zosyn and given a dose of vancomycin. She was given IV hydration. There was some concern that she was a little volume overloaded the next day and she did receive potassium. She was also started on stress doses of steroids. Her potassium returned low and this was replaced. She had had a history of compression fracture and had stabilization process done at [place]. She had had a fall prior to admit and had been scanned in the ED, but denied any significant back pain throughout the entire hospitalization. She was seen by Palliative Care. Wound Care did see her as well. There was concern that she had an ongoing pneumonia. The antibiotics had been stopped briefly as all the cultures had returned negative; but on the , the culture returned positive for Moraxella catarrhalis, at which time she was started on oral doxycycline. She was also taken down off IV steroids given stress doses of her Cortef. Her electrolytes were monitored and replaced. Oncology did follow along during the hospital stay because of her low-grade endocrine tumor and her chronic use of medication. She did start to feel much better. We did add Mucinex to help her expectorate sputum. There was concern that she would need to go to rehab or skilled. Prior to discharge, Dr. Tamayo did see her and felt that she could not take the 3 hours of therapy on acute rehab. Her electrolytes were continued to be monitored. She did require intermittent potassium and magnesium administration. She, however, was feeling much better. We were able to wean her oxygen requirements lessened. She was working with therapy and her ambulation did improve. It was felt that she was going to need to have skilled care. She was seen by [facility] and they did feel that if she were not on her oral chemotherapy medication for endocrine tumor, that they could accept her. We did discuss with Oncology and they did feel that from month that being off that medication would not cause significant difficulty. She continued to improve. She was down to requiring just 1 L of oxygen at night prior to discharge and she was symptomatically improved. DISCHARGE INSTRUCTIONS: She was discharged to [facility]. She needs to follow up in 7 to [address] Ewelina Goldstein, her primary care provider, or Dr. Dominguez in her absence. She is to stay on a consistent carb diet. Weightbearing as tolerated. PT and OT. O2 to keep her saturations greater than 90%. Accu-Cheks with breakfast and her evening meal. MEDICATIONS: 1. Cardura 2 mg at bedtime. 2. Doxycycline 100 mg twice daily. We will stop the evening dose on October 25. PATIENT'S NAME: AGUSTIN HU [facility] AGE: 76 Y [address] ROOM: [place] [address] LOCATION: GPCU ADMIT DATE: 10/12/2016 Discharge Summary DISCHARGE DATE: 10/22/2016 FAMILY PHYSICIAN: Ewelina Goldstein MD ATTENDING PHYSICIAN: Laurel Monte 3. Lasix 20 mg daily. 4. Humibid LA 600 mg 3 times daily for 7 days and then p.r.n. 5. Cortef 30 mg daily, 20 mg in the evening. 6. NovoLog mild sliding scale. 7. Nystatin 500,000 units 4 times daily for 7 days, last dose will be October 24. 8. Os-Nabor 500 mg twice daily. 9. Pravachol 40 mg daily. 10. Probiotic 250 mg 1 tablet daily. 11. Aldactone 12.5 mg at bedtime. 12. Albuterol inhaled every 4 hours as needed. 13. Proventil 2 puffs twice daily. 14. Metformin 500 mg daily. 15. Solu-Medrol 400 mg IM as she is unable to take oral prednisone. 16. Symbicort 2 puffs daily. Overall prognosis at discharge was fair. The patient was aware as was her family. MADHAV SILVA MD LAW/modl /[id number] CC: MD Ewelina Power MD [facility] d: t: 10/24/16 1245, DISCHARGE SUMMARY
[~2016-10-12 13:10] MED LIST changes: -CARDURA2 MG PO; -CORTEF10 M1 PO; -CORTEF20 MG PO; -GLUCOPHAGE500 MG PO; -K-TAB 10MEQ10 MEQ PO; -OSCAL500 MG PO; -PROBIOTIC250 MG PO; -RECLAST5 MG/100 M IV; -SOLU-MEDRO40 MG/1 ML IM; -[UNRECOGNIZED DRUG - OTHER]
[2016-10-12 14:08] LABS: BASOPHIL % 0.2 %; EOSINOPHIL # 0.1 K/uL (0.0-0.5); EOSINOPHIL % 1.2 %; HEMATOCRIT 39.1 % (33.0-46.0); HEMOGLOBIN 12.1 g/dL (10.0-15.0); IMMATURE GRANULOCYTE # 0.2 K/uL (0.0-0.3); LYMPHOCYTE # 1.3 K/uL (0.8-4.0); LYMPHOCYTE % 15.7 %; MCH 28.8 pg (27.0-34.0); MCHC 30.9 gm/dL (32.0-36.5); MCV 93.1 fl (83.0-98.0); MONOCYTE % 12.7 %; MPV 10.1 fl (9.4-12.4); NEUTROPHIL # (ANC) 5.5 K/uL (1.8-7.8); NEUTROPHIL % 68.2 %; NRBC % 0 /100WBC (0-0.00); PLATELET COUNT 254 K/uL (150-450); RDW-CV 14.9 % (11.9-14.6)
[2016-10-12 14:16] LABS: INR - (THERAPEUTIC) 0.98 (0.92-1.07); PROTIME 10.3 SECONDS (9.8-11.4)
[2016-10-12 14:32] LABS: ALBUMIN 2.8 gm/dL (3.5-5.0); ALK PHOS 254 IU/L (33-138); ALT 26 IU/L (12-78); AST 30 IU/L (10-40); BLOOD UREA NITROGEN 15 mg/dL (6-24); CALCIUM 8.8 mg/dL (8.5-10.5); CHLORIDE 113 mMol/L (96-110); CO2 28 mMol/L (22-32); CPK 45 IU/L (21-215); CREATININE 0.7 mg/dL (0.5-1.1); POTASSIUM 3.7 mMol/L (3.7-5.1); TOTAL BILIRUBIN 0.4 mg/dL (0.0-1.5); TOTAL PROTEIN 6.2 g/dL (6.0-8.4)
[2016-10-12 14:33] LABS: ANION GAP 9.7 (10.0-19.0); SODIUM 147 mMol/L (135-145)
--- NOTE | 2016-10-12 17:32 | NUR ---
Significant Event: Pt arrives from ER this afternoon. Port left chest accessed by ER, some blood return. 02 2 increased 3liters. WOC sees pt at clinic, nurse left message for them to see RE all skin tears. Compression wraps to legs. Pt has cushings and has alot of issues with that. Pt daughters here with her. Compression fxs, ct done, some old ones and new one to back/neck. as fell yesterday at home lives with daughter and uses walker. Zosyn and vanco given in ER. Follow up:
[2016-10-12] MEDS ORDERED: OSCAL500 MG PO (17:34)
[2016-10-12] MEDS ORDERED: CARDURA2 MG PO (17:34)
[2016-10-12] MEDS ORDERED: CORTEF10 M1 PO (17:37)
[2016-10-12] MEDS ORDERED: GLUCOPHAGE500 MG PO (17:39)
[2016-10-12] MEDS ORDERED: CORTEF20 MG PO (17:39)
[2016-10-12] MEDS ORDERED: SOLU-MEDRO40 MG/1 ML IM (17:41)
[2016-10-12] MEDS ORDERED: K-TAB 10MEQ10 MEQ PO (17:42)
[2016-10-12] MEDS ORDERED: PRAVACHOL40 MG PO (17:43)
[2016-10-12] MEDS ORDERED: RECLAST5 MG/100 M IV (17:44)
[2016-10-12] MEDS ORDERED: [UNRECOGNIZED DRUG - OTHER] (17:45)
[2016-10-12] MEDS ORDERED: SYMBICORT 16010.2 GM INH (17:46)
[2016-10-12] MEDS ORDERED: PROBIOTIC250 MG PO (17:55)
--- NOTE | 2016-10-12 18:41 | NUR ---
Patient is 76 yo female admitted this evening from the ER. patient wa seen in clinic this am and sent to ER because her 02 sat was low. daughter reports that home health has been trying to get home oxygen for pt. patient was in [facility] yesterday for follow up from adrenalectomy that she had in August,. patient has also been to the cancer clinic in [place] as well. patient has an implanted port in right chest without erythema or edema noted at site. education is given as documented. patient will be receiving heparin and therefore pneumatics will not be used, per Dr. Monte. patient and daughters deny questions. daughter does have medication list, however, it is missing a few items she states. [facility] is used, however, closed at this time and unable to get a current list from them. patient is assisted up to bedside commode, needs little assistance actually. did very well. did void large amount and had a loose yellow stool, that appeared to have 2 or 3 undissolved medications in it. returned to bed, call light is within reach. patient denies needs at this time. Report is given to ALEXA Roman.
[2016-10-13 05:04] LABS: ALBUMIN 2.5 gm/dL (3.5-5.0); ANION GAP 9.4 (10.0-19.0); CREATININE 0.7 mg/dL (0.5-1.1); MAGNESIUM 2.1 mg/dL (1.8-2.6); PHOSPHORUS 3.9 mg/dL (2.5-4.9); POTASSIUM 3.4 mMol/L (3.7-5.1)
--- NOTE | 2016-10-13 05:19 | NUR ---
A&Ox3. Calm/cooperative with cares. No c/o of pain except when using BP cuff. VSS on 2L N/C. Denies SOB. Ross placed for accurate I&O and frequency of urination with lasix admin. Up with 1 assist to use commode. X3 loose BMs this NOC. Lots of skin tears and generalized bruising. WOC consult. Cath flow used on port and now has good blood return. Intermittent antibiotics. Poor appetite. Con't with POC. Possible placement upon D/C.
[2016-10-13 05:25] LABS: HEMATOCRIT 34.4 % (33.0-46.0); HEMOGLOBIN 10.3 g/dL (10.0-15.0); MCH 27.9 pg (27.0-34.0); MCHC 29.9 gm/dL (32.0-36.5); MCV 93.2 fl (83.0-98.0); PLATELET COUNT 225 K/uL (150-450); RBC 3.69 M/uL (3.50-5.50); RDW-CV 14.7 % (11.9-14.6); WBC 5.2 K/uL (4.0-11.0)
[2016-10-13 06:20] LABS: ABSOLUTE NEUTROPHIL CT (ANC) 4.4 K/uL (1.8-7.8); BANDED NEUTROPHIL # 0.9 K/uL (0.0-0.1); BANDED NEUTROPHILS % 18 %; LYMPHOCYTE # 0.3 K/uL (0.8-4.0); LYMPHOCYTE % 6 %; MONOCYTE # 0.5 K/uL (0.0-1.0); SEGMENTED NEUTROPHIL # 3.5 K/uL (1.8-7.8); SEGMENTED NEUTROPHIL % 67 %
--- NOTE | 2016-10-13 17:30 | NUR ---
Significant Event: A/O x3, cooperative with cares. VSS, SBPs 140-160s, HRs 70-80s, oxygen at 2 liters. No c/o pain. Recieved inital doses of IV lasix; jaimes patent with 650 ml of yellow urine out this shift. Dressings changed to R) arm and L) knee this shift. Up with assist of 1 et walker; refuses gait belt; PT/OT working with patient. Blood cultures positive with gram + rods in the aerobic bottle; Dr Norris notified. Follow up:
--- NOTE | 2016-10-14 04:46 | NUR ---
Significant Event:A/Ox3. VSS on 2L while awake. When sleeping patient is a mouth breather. Myself and RT attempted to move NC to her mouth with no luck so switched patient to a simple mask at 5L for her comfort. Lung sounds are clear to dim. Transfers 1 assist with walker. One loose brown stool this shift. Drsg to skin tears intact. Ross to DD with 1450ml UOP. Follow up:Continue with POC and ATB
[2016-10-14 06:04] LABS: ALBUMIN 2.2 gm/dL (3.5-5.0); CREATININE 0.6 mg/dL (0.5-1.1); MAGNESIUM 1.7 mg/dL (1.8-2.6); PHOSPHORUS 2.7 mg/dL (2.5-4.9)
[2016-10-14 06:07] LABS: ANION GAP 9.1 (10.0-19.0); CALCIUM 6.9 mg/dL (8.5-10.5); POTASSIUM 2.1 mMol/L (3.7-5.1)
[2016-10-14 06:17] LABS: BASOPHIL % 0.2 %; EOSINOPHIL % 0.5 %; HEMATOCRIT 31.1 % (33.0-46.0); HEMOGLOBIN 9.6 g/dL (10.0-15.0); IMMATURE GRANULOCYTE # 0.1 K/uL (0.0-0.3); IMMATURE GRANULOCYTE % 1.3 %; LYMPHOCYTE # 0.7 K/uL (0.8-4.0); LYMPHOCYTE % 11.6 %; MCH 28.7 pg (27.0-34.0); MCHC 30.9 gm/dL (32.0-36.5); MCV 93.1 fl (83.0-98.0); MONOCYTE # 0.7 K/uL (0.0-1.0); MONOCYTE % 11.1 %; MPV 10.4 fl (9.4-12.4); NEUTROPHIL # (ANC) 4.7 K/uL (1.8-7.8); NEUTROPHIL % 75.3 %; NRBC % 0 /100WBC (0-0.00); PLATELET COUNT 199 K/uL (150-450); RBC 3.34 M/uL (3.50-5.50); RDW-CV 14.5 % (11.9-14.6); WBC 6.3 K/uL (4.0-11.0)
--- NOTE | 2016-10-14 16:50 | NUR ---
Significant Event: A/O x3, cooperative with cares. VSS, SBPs 120-130s, HRs 70-80s, oxygen currently at 3 liters. No c/o pain. Zofran given at 0800 for c/o nausea; minimal relief noted. Echo yesterday shows an EF of 60-65%. Ross patent with 150ml of yellow urine out this shift. Up with assist of 1 to [facility] et chair; refuses gait belt. Follow up: pallative care consult, Nafisa bush; patient keeps asking about IV nutrition, states she had it before and helped with the hunger et nausea; have doctor follow up with in AM
[2016-10-14 18:56] LABS: ALBUMIN 2.5 gm/dL (3.5-5.0); ANION GAP 10.2 (10.0-19.0); CALCIUM 7.5 mg/dL (8.5-10.5); CREATININE 0.7 mg/dL (0.5-1.1); MAGNESIUM 1.9 mg/dL (1.8-2.6); PHOSPHORUS 2.2 mg/dL (2.5-4.9); POTASSIUM 4.2 mMol/L (3.7-5.1)
--- NOTE | 2016-10-15 04:46 | NUR ---
Significant Event:A/Ox3. Afebrile. HR 60-70s. SBP 140-150. Oxygen 1-2L throughout the night to stay >90%. D5W infusing at 50ml/h to L)chest port. Transfers 1 assist with walker. BM x2 noted. Ross to DD with 975ml UOP. 20mg IV Lasix x1 dose. Drsg to L)upper arm skin tear changed. Follow up:Palliative to see and discuss options with patient and family.
[2016-10-15 06:20] LABS: ALBUMIN 2.3 gm/dL (3.5-5.0); ANION GAP 9.1 (10.0-19.0); CALCIUM 7.5 mg/dL (8.5-10.5); CREATININE 0.6 mg/dL (0.5-1.1); PHOSPHORUS 2.2 mg/dL (2.5-4.9); POTASSIUM 3.1 mMol/L (3.7-5.1)
[2016-10-15 06:25] LABS: BASOPHIL % 0.2 %; EOSINOPHIL # 0.1 K/uL (0.0-0.5); EOSINOPHIL % 1.2 %; HEMATOCRIT 32.3 % (33.0-46.0); HEMOGLOBIN 9.8 g/dL (10.0-15.0); IMMATURE GRANULOCYTE # 0.1 K/uL (0.0-0.3); IMMATURE GRANULOCYTE % 1.4 %; LYMPHOCYTE # 0.7 K/uL (0.8-4.0); LYMPHOCYTE % 11.9 %; MCH 28.3 pg (27.0-34.0); MCHC 30.3 gm/dL (32.0-36.5); MCV 93.4 fl (83.0-98.0); MONOCYTE # 0.7 K/uL (0.0-1.0); MONOCYTE % 11.2 %; MPV 10.4 fl (9.4-12.4); NEUTROPHIL # (ANC) 4.3 K/uL (1.8-7.8); NEUTROPHIL % 74.1 %; NRBC % 0 /100WBC (0-0.00); PLATELET COUNT 205 K/uL (150-450); RBC 3.46 M/uL (3.50-5.50); RDW-CV 14.7 % (11.9-14.6); WBC 5.8 K/uL (4.0-11.0)
--- NOTE | 2016-10-15 17:29 | NUR ---
Significant Event: A/O x3, cooperative with cares. VSS, SBPs 120s, HRs 80s, currently on room air; to keep O2 sats 88% or >. No c/o pain. Zofran given x2 this shift, last at approximately 1130; relief noted. Ross patent, draining yellow urine, 625 ml out this shift. Up with assist of 1 et walker; patient refuses use of gait belt. Pallative care seen patient today. Recieved 40 Kcl today for a level of 3.1; initial dose of oral lasix given. Follow up: care management to see for placement; ME up discharge, ? when.
--- NOTE | 2016-10-16 04:13 | NUR ---
Significant Event: Patient is alert and oriented. Up with 1A and walker. Patient refuses GB with walking. BM this evening. 675 out jaimes. Skin dressings C/D/I. L) chest port with D5W running at 50ml/hr. No C/O pain. Patient has been calm and cooperative with care.
[2016-10-16 06:59] LABS: ALBUMIN 2.2 gm/dL (3.5-5.0); ALK PHOS 164 IU/L (33-138); ALT 16 IU/L (12-78); ANION GAP 8.5 (10.0-19.0); AST 16 IU/L (10-40); BLOOD UREA NITROGEN 9 mg/dL (6-24); CALCIUM 7.5 mg/dL (8.5-10.5); CHLORIDE 111 mMol/L (96-110); CO2 28 mMol/L (22-32); CREATININE 0.5 mg/dL (0.5-1.1); POTASSIUM 3.5 mMol/L (3.7-5.1); SODIUM 144 mMol/L (135-145); TOTAL PROTEIN 5.1 g/dL (6.0-8.4)
[2016-10-16 07:14] LABS: TOTAL BILIRUBIN 0.3 mg/dL (0.0-1.5)
[2016-10-16 07:47] LABS: BASOPHIL % 0.3 %; EOSINOPHIL # 0.1 K/uL (0.0-0.5); EOSINOPHIL % 1.5 %; HEMATOCRIT 32.9 % (33.0-46.0); HEMOGLOBIN 9.9 g/dL (10.0-15.0); IMMATURE GRANULOCYTE # 0.1 K/uL (0.0-0.3); LYMPHOCYTE # 0.8 K/uL (0.8-4.0); LYMPHOCYTE % 11.3 %; MCH 28.1 pg (27.0-34.0); MCHC 30.1 gm/dL (32.0-36.5); MCV 93.5 fl (83.0-98.0); MONOCYTE # 0.7 K/uL (0.0-1.0); MONOCYTE % 9.5 %; MPV 10.7 fl (9.4-12.4); NEUTROPHIL # (ANC) 5.4 K/uL (1.8-7.8); NEUTROPHIL % 75.4 %; NRBC % 0 /100WBC (0-0.00); PLATELET COUNT 213 K/uL (150-450); RBC 3.52 M/uL (3.50-5.50); RDW-CV 14.6 % (11.9-14.6); WBC 7.2 K/uL (4.0-11.0)
--- NOTE | 2016-10-16 10:50 | NUR ---
A-NUTRITION F/U PALLIATIVE CONSULT NOTED. LABS: NA 144, K+ 3.5, GLU 107, BUN 9, BUILDING CUSTODIAL SUPERVISOR 0.5, ALB 2.2 MEDS: LASIX STARTED 10/14, D5 AT 50 ML/HR. DIET RX: CARDIAC W/ENSURE CLEAR TID. PO INTAKE HAS BEEN BITES-100% SINCE INITIAL ASSESSMENT ON 10/13. HAD 100% OF BRK AND LUNCH YESTERDAY. OBSERVED PT'S BRK TRAY WHEN IN PT'S ROOM AND NOTED 75% INTAKE OF BRK. VISITED W/PT AND PT'S DAUGHTER THIS AM. PT REPORTS NOT LIKING THE ENSURE CLEAR; WILLING TRY THE VANILLA GLUCERNA. PT DOES NOT LIKE ENSURE. C/O METAL TASTE IN MOUTH. PT DID TOLERATE COTTAGE CHEESE, YOGURT, AND CEREAL W/MILK THIS MORNING. ENCOURAGED PT TO ORDER THE FOODS THAT SHE KNOWS THAT SHE CAN TOLERATE, AND THEN ADD ADDITIONAL FOOD TO TRY. EST NUTR NEEDS: [id number] KCALS AND 64-90 GM PROTEIN D-AT NUTRITION RISK W/MODERATE MALNUTRITION R/T INADEQUATE NUTRIENT INTAKE SECONDARY TO ALTERED GI FXN AEB NFPE RESULTS, WT LOSS, NAUSEA, TASTE CHANGES, AND INTAKE RECORDS I-1)D/C ENSURE CLEAR, PER PT REQUEST 2)START VANILLA GLUCERNA BID 3)RECOMMEND LIBERALIZING DIET FROM CARDIAC TO REGULAR TO OFFER MORE MEAL SELECTIONS FOR PT. M/E-GOAL: PO INTAKE >/=50% BY DISCHARGE 1)F/U PO INTAKE, SUPPLEMENT, AND POC IN 2-4 DAYS 2)ASSIST NEEDED
--- NOTE | 2016-10-16 11:00 | NUR ---
D/T POOR PO INTAKE, RECOMMEND LIBERALIZING DIET FROM CARDIAC TO REGULAR.
--- NOTE | 2016-10-16 12:28 | NUR ---
Introduced self and care management services to patient and daughter at bedside. Lives in [place] alone, another daughter has been staying with her at home. She would like to go to SNF for a short skilled stay to get stronger before going home again, prefers [facility]. Called Araseli at [facility], faxed referral information, waiting to hear back if they will assess.
--- NOTE | 2016-10-16 18:18 | NUR ---
Significant Event: pt up to chair with therapy. talked to pt/family. IVF s.lock. Regular diet. Mg po given. IV steroid to po. 02 2liters. Pain controlled. Doxycycline po started. Pt has many family and friends today. Ross intact. Follow up:
--- NOTE | 2016-10-17 05:34 | NUR ---
Significant Event: Patient is alert and oriented. HR 70-80. SBP 130-140. Sats low 90's on 2L. Keep >88%. Up with one assist and walker. Patient refuses to use GB due to compression fractures. 750 out jaimes. L) Chest port saline locked. Patient has been calm and cooperative with cares.
[2016-10-17 06:27] LABS: HEMATOCRIT 32.5 % (33.0-46.0); HEMOGLOBIN 9.9 g/dL (10.0-15.0); MCH 27.9 pg (27.0-34.0); MCHC 30.5 gm/dL (32.0-36.5); MCV 91.5 fl (83.0-98.0); MPV 10.7 fl (9.4-12.4); PLATELET COUNT 213 K/uL (150-450); RBC 3.55 M/uL (3.50-5.50); RDW-CV 14.2 % (11.9-14.6)
[2016-10-17 06:39] LABS: ALBUMIN 2.2 gm/dL (3.5-5.0); ANION GAP 10.6 (10.0-19.0); CHLORIDE 109 mMol/L (96-110); CO2 28 mMol/L (22-32); CREATININE 0.5 mg/dL (0.5-1.1); MAGNESIUM 1.9 mg/dL (1.8-2.6); PHOSPHORUS 2.3 mg/dL (2.5-4.9); POTASSIUM 3.6 mMol/L (3.7-5.1); SODIUM 144 mMol/L (135-145)
[2016-10-17 06:42] LABS: BLOOD UREA NITROGEN 15 mg/dL (6-24)
[2016-10-17 07:18] LABS: ABSOLUTE NEUTROPHIL CT (ANC) 6.2 K/uL (1.8-7.8); BANDED NEUTROPHIL # 0.5 K/uL (0.0-0.1); BANDED NEUTROPHILS % 7 %; LYMPHOCYTE # 0.3 K/uL (0.8-4.0); LYMPHOCYTE % 4 %; MONOCYTE # 0.6 K/uL (0.0-1.0); SEGMENTED NEUTROPHIL # 5.7 K/uL (1.8-7.8); SEGMENTED NEUTROPHIL % 81 %
--- NOTE | 2016-10-17 12:33 | NUR ---
Received phone message from Araseli at [facility] asking if pt intent is to come on Hospice or come for short skilled stay with therapies and go home. Talked with EDDY Sk[facility]ton palliative care as pt in bathroom and she reports pt is on an oral chemo Afinitor and daughter has been bringing it in, not ready for Hospice yet. Called Araseli at [facility] back and discussed with her, she did see the Afinitor (pt home med) on the med list I faxed her, she will check and see what cost of med is and come assess this afternoon and let us know if they can accept pt for short skilled stay or if chemo will be cost prohibitive.
--- NOTE | 2016-10-17 15:38 | NUR ---
Talked with patient and 2 daughters in room and gave them Araseli at [facility] phone number to call about chemo med. They report pt getting med through scholarship and they will have a month supply. They may stop down there instead of calling. I called Araseli and let her know. Then Araseli called me back and talked with her active directory administrator and they can't accept due to cost of chemo med, not supposed to take outside meds into facility when on skilled stay. Called Kortney at [facility] and explained situation to her and she said same thing, can't accept outside meds into facility when on skilled stay and can't accept due to cost of chemo med. Will talk with patient and daughters, wonder about inpatient rehab before home vs home with HH, not sure if pt able to do 3 hours therapy/day. Erika with [facility] called [phone] to let me know they were consulted and will resume HH if she goes home. poultry hatchery manager will follow.
--- NOTE | 2016-10-17 16:34 | NUR ---
SIGNIFICANT EVENT: PATIENT IS ALERT AND ORIENTED X3. UP WITH THERPY X2. SHOWERED AND CHANGED ALL WOUND DRESSINGS EXCEPT FOR ONE ON R) LOWER ARM WHICH WAS KEPT C/D/I. SANDOVAL IN PLACE WITH 550ML OUT. 1500 ML FLUID RESTRICTION. HAS HAD 590ML OF 1600. HR 80'S, SBP 140'S, O2 >90% ON 3L CONTINOUSLY, STATES NO PAIN EXCEPT WHEN CHANGING DRESSINGS AND TAKING BP. BP IS TAKEN ON L) LOWER ARM DUE TO MULTIPLE SKIN TEARS. PT. REFUSES GAIT BELT AT ALL TIMES. PATIENT IS PLEASANT AND COOPERATIVE. FAMILY VISITED TODAY AND FREQUENTLY AT BEDSIDE. FOLLOW UP: CONTINUE WITH PLAN OF CARE.
--- NOTE | 2016-10-17 16:45 | NUR ---
Talked with patient and let her know [facility] because of cost of chemo medication, they can't accept outside drugs into the facility (pt has a month supply at home she can supply herself) while on Medicare Skilled Stay. No SNF can accept due to cost of chemo med. She is worried about burden of care put on her daughter Jason and wants other options if she can. Discussed Home with Home Health and privately paid caregivers to supplement her care at home vs respite room at LONG TERM, LONG TERM would be private pay but they could look at her long term care social worker care policy to see if it would cover it. She called her daughter Shantel and I talked with Shantel about the above and options for home with [facility] and privately paid caregivers at home and HH therapies vs respite room at LONG TERM with outpt therapies they bring in. Printed caregiver and LONG TERM resource list and put it at pt bedside for daughter. Suggested daughter call the LONG TERM's to find out who has respite rooms and check prices and requirements (some require 2 week or 30 day stay) and what services included or extra and then discuss it with sister and mom. She was agreeable to investigating options. After daughter and I hung up the phone, pt asked me if [facility] would accept if she wasn't on the chemo, if doctor said she could stop the chemo for 30 days or so. Told pt I don't want her to make decisions about the chemo that could affect her long term care social worker cancer outcome based on options of short term discharge plan. She said she understood but that she is going to talk with Dr Gzuman when he rounds [facility]. Told her I'm not sure if they would accept or not, that they tell me the chemo is what the issue is but we would have to revisit it with them. Told her if I were a [place] social work nurse or senior oracle database administrator I'd scoop her right up for my facility but I can't speak for them. She laughed and said ok, she would think about it and discuss it with her oncologist. Again, told her not to make decisions about chemo that could affect her cancer based on short term discharge planning problems. She voiced her understanding of my concern. Freight Hustler will follow.
--- NOTE | 2016-10-18 04:35 | NUR ---
Significant Event: Patient alert and oriented x3. HR 70s-80s. SBP 130s-150s. All other vital signs stable. On 2-4L with sleep per NC. Patient mouth breathing frequently this shift. No complaints of pain. Repositioned Q2 and PRN. Ross patent with 750ml uop. Up with 1 assist and walker in room. Patient refuses gaitbelt due to multiple compression fractures to back. Left chest port continues saline locked. Dressings to skin tears/abrasions remain C/D/I. Patient calm and cooperative with all cares. Follow up: Waiting for placement.
[2016-10-18 07:01] LABS: HEMATOCRIT 31.5 % (33.0-46.0); HEMOGLOBIN 9.7 g/dL (10.0-15.0); MCHC 30.8 gm/dL (32.0-36.5); MPV 10.7 fl (9.4-12.4); PLATELET COUNT 217 K/uL (150-450); RBC 3.46 M/uL (3.50-5.50); RDW-CV 14.5 % (11.9-14.6); WBC 6.6 K/uL (4.0-11.0)
[2016-10-18 07:16] LABS: ALBUMIN 2.3 gm/dL (3.5-5.0); CREATININE 0.6 mg/dL (0.5-1.1); MAGNESIUM 1.9 mg/dL (1.8-2.6); PHOSPHORUS 2.4 mg/dL (2.5-4.9)
[2016-10-18 07:59] LABS: ABSOLUTE NEUTROPHIL CT (ANC) 5.5 K/uL (1.8-7.8); BANDED NEUTROPHIL # 0.8 K/uL (0.0-0.1); BANDED NEUTROPHILS % 12 %; LYMPHOCYTE # 0.5 K/uL (0.8-4.0); LYMPHOCYTE % 7 %; MONOCYTE # 0.5 K/uL (0.0-1.0); SEGMENTED NEUTROPHIL # 4.8 K/uL (1.8-7.8); SEGMENTED NEUTROPHIL % 72 %
--- NOTE | 2016-10-18 12:51 | NUR ---
A-NUTRITION F/U LABS: NA 146, K+ 3.0, GLU 139, BUN 18, REGULATORY AFFAIRS PORTFOLIO LEADER 0.6, ALB 2.3 DIET RX: COSNISTENT CARB/2-3 GM NA DIET. PO INTAKE HAS IMPROVED TO 75-100% SINCE LAST F/U. VISITED W/PT RE: VANILLA GLUCERNA BID THAT WE STARTED. SHE DOES NOT LIKE IT. DISCUSSED EITHER THE ENSURE PUDDING OR MAGIC CUP. PT WAS AGREEABLE TO TRYING VAN. MAGIC UP. PT REPORTS THAT SHE STILL HAS THE METAL TASTE IN HER MOUTH. DISCUSSED USING PLASTIC SILVERWARE, LEMON OR CITRUS. PT REPORTS THAT SHE HAS TRIED ALL THAT. SHE IS ORDERING SLICES OF LEMON AND TOLERATING THE LEMON ON THE SALMON LAST NIGHT. SHE CANNOT EAT BEEF OR PORK D/T THE METAL TASTE, BUT TOLERATES FISH OR CHICKEN. SHE HAS BEEN EATING COTTAGE CHEESE FOR PROTEIN. D-AT NUTRITION RISK W/MODERATE MALNUTRITION R/T INADEQUATE NUTRIENT INTAKE SECONDARY TO ALTERED GI FXN AEB RECENT WT LOSS, NAUSEA, TASTE CHANGES, THRUSH. I-1)D/C VANILLA GLUCERNA BID 2)ADD VANILLA MAGIC UP BID M/E-GOAL: PO INTAKE >/=75% FOR DURATION OF ADMIT 1)F/U PO INTAKE, SUPPLEMENT TOLERANCE, WT, AND POC IN 4-5 DAYS 2)ASSIST NEEDED
--- NOTE | 2016-10-18 14:26 | NUR ---
Met with patient, daughter, and Nafisa Chandler APRN. Long discussion with the two of them about plan for discharge. Patient and daughter prefer [facility] I did speak to Trena Kan with [facility] and informed her of the plan to resume their services at discharge. Daughter will also higher private caregivers either through [facility] or [facility]. Note placed on chart for physician so they know family wants to return home with home health care. Will continue to follow and offer supports.
--- NOTE | 2016-10-18 18:07 | NUR ---
Significant Event: A/OX3, VSS ON 2L PER NC. NO PAIN. ALL SKIN TEAR DRESSINGS CHANGED TODAY, NOW C/D/I, LEFT RIGHT SHOULDER OPEN TO AIR. LEFT CHEST PORT HAS IV KCL & MG RUNNING, THEN CAN BE SALINE LOCKED. PT. GETS UP 1 ASSIST TO CHAIR/BATHROOM, STILL REFUSING GAIT BELT. POSSIBLE D/C TO HOME WITH HOME HEALTH IN THE NEXT COUPLE OF DAYS. WEAN O2 TO KEEP SATS >90%. Follow up: CONTINUE WITH POC.
[2016-10-19 04:52] LABS: ALBUMIN 2.3 gm/dL (3.5-5.0); ANION GAP 10.5 (10.0-19.0); BLOOD UREA NITROGEN 26 mg/dL (6-24); CALCIUM 7.8 mg/dL (8.5-10.5); CHLORIDE 112 mMol/L (96-110); CO2 26 mMol/L (22-32); CREATININE 0.5 mg/dL (0.5-1.1); MAGNESIUM 2.5 mg/dL (1.8-2.6); PHOSPHORUS 2.4 mg/dL (2.5-4.9); POTASSIUM 4.5 mMol/L (3.7-5.1); SODIUM 144 mMol/L (135-145)
[2016-10-19 05:04] LABS: HEMATOCRIT 32.3 % (33.0-46.0); HEMOGLOBIN 9.9 g/dL (10.0-15.0); MCH 28.4 pg (27.0-34.0); MCHC 30.7 gm/dL (32.0-36.5); MCV 92.8 fl (83.0-98.0); MPV 10.9 fl (9.4-12.4); PLATELET COUNT 231 K/uL (150-450); RBC 3.48 M/uL (3.50-5.50); RDW-CV 14.4 % (11.9-14.6); WBC 6.4 K/uL (4.0-11.0)
--- NOTE | 2016-10-19 05:16 | NUR ---
Significant Event: Patient is alert and oriented. Up with 1A and walker. Patient refuses GB due to compression fractures. HR 70-80's. SBP 140-150's. O2 lower to mid 90's on 2L. Lungs clear and dim. 1-2+ LE edema. Ross intact. 470 out this shift. Patient has been calm and cooperative with cares. Follow up: Possibly home today with home health
[2016-10-19 06:22] LABS: ABSOLUTE NEUTROPHIL CT (ANC) 5.7 K/uL (1.8-7.8); BANDED NEUTROPHIL # 0.8 K/uL (0.0-0.1); BANDED NEUTROPHILS % 12 %; LYMPHOCYTE # 0.3 K/uL (0.8-4.0); LYMPHOCYTE % 5 %; MONOCYTE # 0.4 K/uL (0.0-1.0); SEGMENTED NEUTROPHIL # 4.9 K/uL (1.8-7.8); SEGMENTED NEUTROPHIL % 77 %
--- NOTE | 2016-10-19 12:09 | NUR ---
Talked with patient, she reports oncologist told her won't make a difference if she stops the chemo for several weeks while on a skilled stay somewhere, can restart it when she goes home from there. Discussed with her my only other concern is the octreotide she is on, will see what [facility] says about that and the cost. Called Araseli at [facility] and left a voicemail for her to reassess and will be off chemo until goes home or goes off skilled stay and that pt is on octreotide and didn't know if that would be a barrier with the cost. Asked her to talk with her higher education administrator and call me back. Called daughter Shantel and suggested she go down and talk with Maribell Ordaz as well about goals. She said she would do so at 1300. Asked her what plan will be if [facility] will not accept and she said plan would be home with . I did talk with Trena Omer with [facility] and they will resume care if she goes home. Trena phone number is [phone].
--- NOTE | 2016-10-19 14:49 | NUR ---
Araseli from [facility] called me and reassessing for skilled stay, checking into cost of Octreotide now. I called Dr Guzman office and pt on 30mg of Octreotide as an injection and last got it 08/15. Put note on chart asking Dr Guzman if still needed it or can hold it until done with skilled stay. Let Araseli know that information. Discussed that with pt as well, she couldn't remember when she got it last. Waiting for [facility] to decide if they can accept, when I talked with daughter Shantel today she said pt would go home with HH if [facility] still won't accept. Pt hoping they will.
--- NOTE | 2016-10-19 15:24 | NUR ---
Araseli from [facility] called, they assessed pt and can accept for skilled stay on Saturday and will pick pt up at 1045 IF pt does not need oral chemo and IF anticipate does not need octreotide for short amount of time pt will be on skilled stay, anticipate up to [address]. [address] Guzman and he said that will be up to Mrs. Otero but he is okay with her being off oral chemo for 4 weeks and will give the octreotide while she is here and won't need for 4 weeks. He will see pt and talk with her and order the octreotide while here. I called pt nurse and discussed with her, she will let patient know. Will followup on Saturday. I let Dr Sanchez know and she agreed with the above.
--- NOTE | 2016-10-19 16:48 | NUR ---
Significant Event: VSS AND 2L/NC, AFEBRILE. DENIES PAIN. SANDOVAL WITH 525 MLS UOP, D/C AT 1700. AMBULATES IN [place] AND WORKS WITH PT. WOC RN UP AND CHANGED DRESSINGS TO BILATERAL KNEES AND LT)UPPER ARM THIS AFTERNOON. PORT IS SALINE LOCKED AND FLUSHES WELL WITH GOOD BLOOD RETURN. Follow up: CONTINUE PLAN OF CARE; D/C TO [facility] ON SATURDAY AT 1045.
--- NOTE | 2016-10-20 05:18 | NUR ---
Significant Event: Patient is alert and oriented x3. Follows commands. PERRLA. Denies DIAL. Lungs have cracles in the upper lobes and are slightly diminished in the bases. 2 L O2. Edema to lower extremities. Abrasions to bilateral knees, right shoulder, face. Bowel sounds are active. Voids per commode. SR. Port to left chest- SL, good blood return. Pleasant and cooperative with cares Follow up:
[2016-10-20 06:34] LABS: ALBUMIN 2.3 gm/dL (3.5-5.0); ANION GAP 11.1 (10.0-19.0); CALCIUM 8.1 mg/dL (8.5-10.5); CREATININE 0.6 mg/dL (0.5-1.1); MAGNESIUM 2.3 mg/dL (1.8-2.6); PHOSPHORUS 2.6 mg/dL (2.5-4.9); POTASSIUM 4.1 mMol/L (3.7-5.1)
[2016-10-20 06:36] LABS: HEMATOCRIT 32.5 % (33.0-46.0); HEMOGLOBIN 9.9 g/dL (10.0-15.0); MCH 28.2 pg (27.0-34.0); MCHC 30.5 gm/dL (32.0-36.5); MCV 92.6 fl (83.0-98.0); MPV 10.9 fl (9.4-12.4); PLATELET COUNT 236 K/uL (150-450); RBC 3.51 M/uL (3.50-5.50); RDW-CV 14.5 % (11.9-14.6); WBC 6.4 K/uL (4.0-11.0)
[2016-10-20 07:11] LABS: ABSOLUTE NEUTROPHIL CT (ANC) 5.1 K/uL (1.8-7.8); BANDED NEUTROPHIL # 0.8 K/uL (0.0-0.1); BANDED NEUTROPHILS % 12 %; LYMPHOCYTE # 1.1 K/uL (0.8-4.0); LYMPHOCYTE % 17 %; MONOCYTE # 0.2 K/uL (0.0-1.0); SEGMENTED NEUTROPHIL # 4.3 K/uL (1.8-7.8); SEGMENTED NEUTROPHIL % 67 %
--- NOTE | 2016-10-20 17:45 | NUR ---
Significant Event: A/Ox3. [id number]. P-70s. Afebrile. Weaned to room air. Up with 1A. Patient refused gaitbelt. Denies SOB and pain. Dressing to B) knees and arms changed, C/D/I. PAtient will discharge to [facility] at 1045 on saturday. Pleasant and cooperative with cares.
--- NOTE | 2016-10-21 05:42 | NUR ---
Significant Event: AFEBRILE. VSS. ORIENTED X3. PATIENT ON RA THIS SHIFT WITH SATS 91-93%. 1 L O2 PLACED ON PATIENT WHEN ASLEEP. LUNGS CLEAR WITH SLIGHT CRACKLES NOTED TO LRL ON LAST ASSESSMENT. PATIENT DENIED PAIN EXCEPT WHEN LAYING IN BED TO SLEEP, PATIENT REPORTED BACK PAIN. DENIED PAIN MEDICATION AND STATED THAT REPOSITIONING HAD HELPED. NO OTHER COMPLAINTS OF PAIN. LIQUID BM THIS SHIFT. WHEN PATIENT MOVED FROM CHAIR TO BED, SHE REPORTED SHE FELT LIKE THE ROOM WAS SPINNING FOR A FEW SECONDS. PATIENT HAS LOOSE, NONPRODUCTIVE COUGH. 2+ EDEMA TO BILATERAL LOWER EXTREMITIES. DRESSINGS FOR SKIN TEARS ALL C/D/I. PATIENT REFUSES GAIT BELT AND WALKER. CHEST PORT TO UPPER LEFT CHEST APPEARS NORMAL ON ASSESSMENT. WILL FLUSH AND CHECK FOR BLOOD RETURN THIS MORNING WHEN DRAWING AM LABS. Follow up: [facility] ON SATURDAY MORNING
[2016-10-21 06:31] LABS: HEMATOCRIT 32.7 % (33.0-46.0); MCH 28.1 pg (27.0-34.0); MCHC 30.6 gm/dL (32.0-36.5); MCV 91.9 fl (83.0-98.0); PLATELET COUNT 249 K/uL (150-450); RBC 3.56 M/uL (3.50-5.50); RDW-CV 14.6 % (11.9-14.6); WBC 7.5 K/uL (4.0-11.0)
[2016-10-21 06:34] LABS: ALBUMIN 2.3 gm/dL (3.5-5.0); CALCIUM 8.2 mg/dL (8.5-10.5); CREATININE 0.6 mg/dL (0.5-1.1); MAGNESIUM 2.3 mg/dL (1.8-2.6); PHOSPHORUS 3.5 mg/dL (2.5-4.9)
[2016-10-21 07:14] LABS: ABSOLUTE NEUTROPHIL CT (ANC) 5.3 K/uL (1.8-7.8); BANDED NEUTROPHIL # 1.4 K/uL (0.0-0.1); BANDED NEUTROPHILS % 18 %; LYMPHOCYTE # 1.7 K/uL (0.8-4.0); LYMPHOCYTE % 22 %; MONOCYTE # 0.5 K/uL (0.0-1.0); SEGMENTED NEUTROPHIL % 53 %
--- NOTE | 2016-10-21 18:27 | NUR ---
Significant Event: A/Ox3. VSS patient weaned down to room air in AM and remained on room air throughout the day. Patient had complaints of upset stomach. Protonix started and a 1 time dose of Mylanta given to patient. Patient had4 loose stools she states she was frequent stools at home and this is her baseline. Up with 1A/walker, refused gaitbelt. Pleasant and cooperative with cares. Follow up: Prepare for discharge tomorrow AM at 1045 to [facility].
[2016-10-22 04:32] LABS: ALBUMIN 2.3 gm/dL (3.5-5.0); ANION GAP 10.2 (10.0-19.0); CALCIUM 8.3 mg/dL (8.5-10.5); CREATININE 0.6 mg/dL (0.5-1.1); MAGNESIUM 2.1 mg/dL (1.8-2.6); PHOSPHORUS 3.4 mg/dL (2.5-4.9); POTASSIUM 4.2 mMol/L (3.7-5.1)
[2016-10-22 04:37] LABS: HEMATOCRIT 32.9 % (33.0-46.0); HEMOGLOBIN 10.2 g/dL (10.0-15.0); MCH 28.3 pg (27.0-34.0); MCV 91.4 fl (83.0-98.0); MPV 10.9 fl (9.4-12.4); PLATELET COUNT 240 K/uL (150-450); RDW-CV 14.6 % (11.9-14.6); WBC 8.1 K/uL (4.0-11.0)
[2016-10-22 05:07] LABS: ABSOLUTE NEUTROPHIL CT (ANC) 6.7 K/uL (1.8-7.8); BANDED NEUTROPHIL # 1.1 K/uL (0.0-0.1); BANDED NEUTROPHILS % 13 %; LYMPHOCYTE # 0.4 K/uL (0.8-4.0); LYMPHOCYTE % 5 %; MONOCYTE # 0.6 K/uL (0.0-1.0); SEGMENTED NEUTROPHIL # 5.7 K/uL (1.8-7.8); SEGMENTED NEUTROPHIL % 70 %
--- NOTE | 2016-10-22 07:15 | NUR ---
Significant Event: PATIENT AFEBRILE. HYPERTENSIVE. PLACED ON 1 L 02 AT 2200. PORT TO L) CHEST FLUSHES WELL, GOOD BLOOD RETURN. PATIENT RESTED WELL IN BED THIS SHIFT. HAS LOOSE COUGH. PATIENT HAS HAD 2 LOOSE BMS THIS SHIFT WHICH SHE REPORTS ARE NORMAL FOR HER. Follow up: GOING HOME TO [facility] TODAY.
--- NOTE | 2016-10-22 10:37 | NUR ---
Transfer Note: Patient is A/Ox3. VSS on room air. Patient wears 1-2L at HS. Up with SBA/walker. Refuses gaitbelt. Soome numbness and tingling to B)legs. Worse on the L) leg. Patient has daily dressing changes to R)FA/elbow, L)UA and B) knees. Petroleum gauze, gauze, kurlix and abby wrap applied. Patient's skin is fragile and she has generalized eccymosis. Old abrasion to Face open to air. Some blanchable redness to buttocks. Patient voids appropriatley, quanity suffficient. Patient has frequent loose stools, states this is her normal. Patient is pleasant and cooperative with cares.
--- NOTE | 2016-10-22 12:04 | NUR ---
Patient discharged today to [facility] for skilled stay. Called and faxed orders to Araseli at [facility], talked with patient and she is happy to be going today. Gave phone number to pt nurse to call report.
== END 2016-10-22 11:15 | DRG 291 ==
LOC: GMED 13:10 → GPCU 15:26
PROVIDERS: Emergency Medicine; Internal Medicine; ADMIT Internal Medicine
DX: I13.0 Hypertensive heart and chronic kidney disease with heart failure and stage 1 through stage 4 chronic kidney disease, or unspecified chronic kidney disease (principal); J96.01 Acute respiratory failure with hypoxia; J15.6 Pneumonia due to other Gram-negative bacteria; S22.058A Other fracture of T5-T6 vertebra, initial encounter for closed fracture; B48.8 Other specified mycoses; B37.0 Candidal stomatitis; C78.7 Secondary malignant neoplasm of liver and intrahepatic bile duct; J44.0 Chronic obstructive pulmonary disease with (acute) lower respiratory infection; I50.33 Acute on chronic diastolic (congestive) heart failure; S22.068A Other fracture of T7-T8 thoracic vertebra, initial encounter for closed fracture; S22.088A Other fracture of T11-T12 vertebra, initial encounter for closed fracture; E34.0 Carcinoid syndrome; I82.409 Acute embolism and thrombosis of unspecified deep veins of unspecified lower extremity; C7A.8 Other malignant neuroendocrine tumors; J44.1 Chronic obstructive pulmonary disease with (acute) exacerbation; Z51.5 Encounter for palliative care; W19.XXXA Unspecified fall, initial encounter; Z91.81 History of falling; T38.0X5A Adverse effect of glucocorticoids and synthetic analogues, initial encounter; Z79.84 Long term (current) use of oral hypoglycemic drugs; Z79.52 Long term (current) use of systemic steroids; Z87.891 Personal history of nicotine dependence; Z96.619 Presence of unspecified artificial shoulder joint; K21.9 Gastro-esophageal reflux disease without esophagitis; M19.90 Unspecified osteoarthritis, unspecified site; M81.0 Age-related osteoporosis without current pathological fracture; E55.9 Vitamin D deficiency, unspecified; F32.9 Major depressive disorder, single episode, unspecified; F41.9 Anxiety disorder, unspecified; E21.3 Hyperparathyroidism, unspecified; E78.5 Hyperlipidemia, unspecified; E79.0 Hyperuricemia without signs of inflammatory arthritis and tophaceous disease; K58.9 Irritable bowel syndrome, unspecified; E11.22 Type 2 diabetes mellitus with diabetic chronic kidney disease; N18.9 Chronic kidney disease, unspecified; S00.83XA Contusion of other part of head, initial encounter; Z66 Do not resuscitate; E66.8 Other obesity; Z68.28 Body mass index [BMI] 28.0-28.9, adult; Y95 Nosocomial condition; E11.65 Type 2 diabetes mellitus with hyperglycemia
CPT/HCPCS: J1642; J1644; J1720; J1940; J2353; J2405; J2543; J2920; J2997; J3370; J3475; J3480; J7050; J7060